=== PATIENT | male | born 1930 | race Hispanic/Latino ===

== ENCOUNTER 2017-08-19 18:01 | Emergency (ER) | payer OTHER ==
--- OUTSIDE RECORDS SUMMARY | 2017-08-19 18:03 | XMS REPORT | Clinical Summary ---
:1930 Author Organization [facility] Address [address] [place] [id number] Phone Care Team Providers Name Role Phone Unavailable Primary Care Provider Unavailable Allergies Active Allergy Reactions Severity Noted Date Comments Codeine 11/05/2015 Hydrocodone-Acetaminophen 12/05/2016 Pregabalin 12/05/2016 "Lyrica" Tramadol 12/05/2016 Current Medications Prescription Sig. Disp. Refills Start Date End Date Status aspirin 81 MG Take 81 mg by Active chewable tablet mouth daily. potassium chloride Take 20 mEq by Active SA (K-DUR,KLOR-CON) mouth daily . 10 MEQ tablet rosuvastatin Take 10 mg by Active (CRESTOR) 10 MG mouth daily. tablet cyanocobalamin 1000 Take 1,000 mcg Active MCG tablet by mouth daily. ascorbic acid, Take 1,000 mg Active vitamin C, (VITAMIN by mouth C) 1000 MG tablet daily. cholecalciferol, Take 1,000 Active vitamin D3, 2,000 Units by mouth unit Tab daily . LACTOBACILLUS Take 1 capsule Active ACIDOPHILUS by mouth daily (PROBIOTIC ORAL) . simethicone (MYLANTA Take 125 mg by Active GAS MAXIMUM mouth every 6 STRENGTH) 125 MG (six) hours as chewable tablet needed for Flatulence. glucosamine-chondroi Take 1 tablet Active tin 500-400 mg by mouth tablet daily. furosemide (LASIX) Take 1 tablet 30 tablet 2 01/04/2017 Active 40 MG tablet (40 mg total) by mouth daily. clopidogrel (PLAVIX) Take 1 tablet 30 tablet 3 01/05/2017 Active 75 mg tablet (75 mg total) 8 by mouth daily. omeprazole Take 40 mg by Active (PRILOSEC) 40 MG mouth daily. capsule hydrocortisone 2.5 % Apply Active ointment topically as needed (for eczema). VIT C/VIT E Take 1 tablet Active ACETATE/LUTEIN/MIN by mouth (OCUVITE LUTEIN daily. ORAL) metoprolol TAKE ONE 60 tablet 0 03/28/2017 Active (TOPROL-XL) 25 MG 24 TABLET BY hr tablet MOUTH TWICE DAILY furosemide (LASIX) Take 20 mg by Discontinued 20 MG tablet mouth daily . 7 metoprolol Take 25 mg by Discontinued (LOPRESSOR) 50 MG mouth 2 (two) 7 tablet times daily. multivitamin with Take 1 tablet Discontinued minerals tablet by mouth 7 daily. omeprazole Take 40 mg by Discontinued (PRILOSEC) 40 MG mouth daily. 7 capsule metFORMIN Take 500 mg by Discontinued (GLUCOPHAGE) 500 MG mouth 2 (two) 7 tablet times daily with breakfast and dinner. UNKNOWN 1 capsule Discontinued daily Med 7 Name: nolan . minocycline Take 1 capsule 20 capsule 0 01/05/2017 (MINOCIN,DYNACIN) (100 mg total) 7 100 MG capsule by mouth every 12 (twelve) hours for 10 days. metoprolol (TOPROL Take 1 tablet 60 tablet 0 01/18/2017 Discontinued XL) 25 MG 24 hr (25 mg total) 7 tablet by mouth 2 (two) times daily for 30 days. 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 Hypertension Resolved Problems Problem Noted Date Resolved Date Aortic valve stenosis 01/04/2017 01/18/2017 Angina pectoris (HCC) 01/18/2017 Encounters Date Type Specialty Care Team Description 05/02/2017 Refill Cardiology John Garduno NP 03/27/2017 Refill Cardiology John Garduno NP 02/20/2017 Refill Cardiology John Garduno NP 01/20/2017 Telephone Cardiology John Garduno NP Medication Problem 01/18/2017 Office Visit Cardiology John Garduno NP Chronic combined systolic and diastolic CHF, NYHA class 3 (HCC) (Primary Dx) 01/18/2017 Office Visit Cardiology Caleb Pollock Postoperative state MD Lynn (Primary Dx) 01/04/2017 - Hospital Encounter Cardiology Nelson Mcclellan Angina pectoris (HCC) 01/05/2017 MD Levi 01/04/2017 Procedure Pass 01/04/2017 Surgery Nelson Mcclellan TAVR / [facility] - MD Levi IP PROC ONLY 12/14/2016 Hospital Encounter Nelson Mcclellan MD 12/14/2016 Office Visit Cardiology Caleb Pollock Sarcoma (HCC);William Bailey MD pectoris (HCC);Sarcoma, Kaposi (HCC);Essential hypertension 12/14/2016 Anesthesia Event Landon Leslie, MENDOZA 12/05/2016 Hospital Encounter Radiology Nelson Mcclellan Aortic valve MD Levi stenosis, unspecified etiology 12/05/2016 Hospital Encounter Radiology Nelson Mcclellan Aortic valve MD Levi stenosis, unspecified etiology 12/05/2016 Office Visit Cardiology System, Provider Aortic valve Not In stenosis, unspecified Timmy Rivas etiology (Primary Dx) MD Rodrick 12/05/2016 Abstract Cardiology Timmy Rivas HyperlipidemiaRodrick MD unspecified hyperlipidemia type;Severe aortic stenosis;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);S/P CABG (coronary artery bypass graft);Bilateral carotid artery occlusion;S/P carotid endarterectomy;Gastro esophageal reflux disease without esophagitis 11/29/2016 Outside Orders Central Scheduling Nelson Mcclellan Aortic valve MD Levi stenosis, unspecified etiology (Primary Dx) after 08/18/2016 Social History Tobacco Use Types Packs/Day Years Used Date Never Smoker Smokeless Tobacco: Never Used Alcohol Use Drinks/Week oz/Week Comments No Sex Assigned at Date Recorded Not on file Last Filed Vital Signs Vital Sign Reading Time Taken Blood Pressure 157/82 01/18/2017 2:34 PM CDT Pulse 70 01/18/2017 10:09 AM CDT Temperature 36.6 C (97.8 F) 01/18/2017 10:09 AM CDT Respiratory Rate 16 01/18/2017 10:09 AM CDT Oxygen Saturation 98% 01/18/2017 10:09 AM CDT Inhaled Oxygen Concentration - - Weight 61.7 kg (136 lb) 01/18/2017 10:09 AM CDT Height 162.6 cm (5' 4") 01/18/2017 10:09 AM CDT Body Mass Index 23.34 01/18/2017 10:09 AM CDT Plan of Treatment Health Maintenance Due Date Last Done Comments INFLUENZA VACCINE 01/29/2018 Implants Implanted Type Area Freight Rate Clerk Device Expiration Date Model / Identifier Serial / Lot Reyes Cong 3 Thv REYES 07/14/2018 [id number] / Implanted: Qty: 1 on 01/04/2017 by Nelson Mcclellan MD [email or web address] [id number] / Procedures Procedure Name Priority Date/Time Associated Diagnosis Comments TAVR / LUDIVINA MCR - IP 01/04/2017 7:31 AM Rheumatic aortic PROC ONLY CDT stenosis Case Notes 1st case Tavr 6TOP after 08/18/2016 Results ECHOCARDIOGRAM REPORT - SCAN (01/31/2017 12:31 PM)B N P (01/18/2017 11:31 AM) Only the most recent of2 resultswithin the time period is included. Component Value Ref Range BNP 244 (H) 0 - 100 pg/mL Specimen Performing Laboratory Blood [address] [address] Magnesium (01/18/2017 11:31 AM) Component Value Ref Range Magnesium 2.1 1.6 - 2.6 mg/dL Specimen Performing Laboratory Blood [address] [address] Basic Metabolic Panel (01/18/2017 11:31 AM)Only the most recent of3 resultswithin the time period is included. Component Value Ref Range Sodium 135 (L) 136 - 145 meq/L Potassium 4.5 3.5 - 5.1 meq/L Chloride 97 (L) 98 - 107 meq/L CO2 30 (H) 22 - 29 meq/L BUN 19 7 - 21 mg/dL Creatinine 1.37 (H) 0.57 - 1.25 mg/dL Glucose 94 70 - 105 mg/dL Calcium 9.8 8.4 - 10.2 mg/dL EGFR 49Comment: ESTIMATED GFR IS NOT ACCURATE mL/min/1.73 sq m CREATININE CLEARANCE IN PREDICTING GLOMERULAR FILTRATION RATE. ESTIMATED GFR IS NOT APPLICABLE FOR DIALYSIS PATIENTS. Specimen Performing Laboratory Blood [facility] [address] [address] RHYTHM STRIP - SCAN (01/17/2017 1:50 PM)Only the most recent of2 resultswithin the time period is included.EKG-SCANNED (01/06/2017 9:04 PM)CARDIAC CATH REPORT - SCAN (01/06/2017 1:00 AM)Only the most recent of2 resultswithin the time period is included.TRANSFUSION SERVICE REPORT - SCAN (01/05/2017 6:12 PM) Only the most recent of2 resultswithin the time period is included.Transthoracic 2D echo w/ doppler (cw/pw/color) (01/05/2017 4:51 PM) Component Value Ref Range Ejection Fraction Specimen Performing Laboratory SLE ECHO HEARTLAB MKCKESSON CPACS Narrative Transthoracic Echocardiography Report (TTE) Demographics Patient NameGARCIA, PABLODate of Study01/05/2017 WALTER Gender Male Visit [id number] Race Unknown [id number] Number Date of 1930 Referring Physician Age 86 year(s) SonographerIzzy Livingston Armature Winder Repair Aquiles Huerta, Interpreting [facility] Needs to be Pre RCSPhysicianRead Isaias Lockhart MD Procedure Type of Study TTE procedure:2DECHO W DOPPLER(CW/PW/COLOR) (Pending Discharge) Indications:Initial post operative evaluation of prosthetic valve. Clinical History HGB 11.1 HCT 33.7 % CHF, CAD, PENA, GERD, HLD, HTN, Murmur, CABG, S/P TAVR (01/05/17 Reyes Cong 3 23mm), Sarcoma Height: 64 inches Weight: 63.5 kg (140 lbs) BSA: 1.68 m^2 BMI: 24.03 kg/m^2 HR: 67 bpm BP: 137/61 mmHg Summary The LV endocardium is partially visualized. The left ventricle is chamber size (by PSLAX dimension) is normal (male - LVIDd 4.2-5.8cm) . No evidence of LV hypertrophy. The following segment(s) appear akinetic: anteroseptal, inferoseptal . The other segments are hypokinetic. The LVEF was measured using Graves's bi-plane method of disk . LVEF by quantitative assessment is moderately reduced (30-34%) , A percutaneous (TAVR) biologic AoV prosthesis is visualized . The prosthetic AoV appears well-seated with normal function by Doppler. No evidence of aortic regurgitation. Pk / Mn: 7.7 / 4.7 mm Hg. AoV dimensionless obstructive index (DOI)) is .46 . Normal mitral valve structure and function. Trace mitral regurgitation. RV chamber size is normal . Global RV systolic function is mildly reduced . Normal tricuspid valve structure and function. A trace of tricuspid regurgitation. Estimated peak systolic PA pressure is cannot be determined due to inadequate TR velocity signal . Signature Findings Left Ventricle The LV endocardium is partially visualized. The left ventricle is chamber size (by PSLAX dimension) is normal (male - LVIDd 4.2-5.8cm) . No evidence of LV hypertrophy. The following segment(s) appear akinetic: anteroseptal, inferoseptal . The other segments are hypokinetic. The LVEF was measured using Graves's bi-plane method of disk . LVEF by quantitative assessment is moderately reduced (30-34%) , Left AtriumLA size is moderately (42-48 ml/m2) . Right VentricleRV chamber size is normal . Global RV systolic function is mildly reduced . Right Atrium Normal right atrium. Aortic Valve A percutaneous (TAVR) biologic AoV prosthesis is visualized . The prosthetic AoV appears well-seated with normal function by Doppler. No evidence of aortic regurgitation. Pk / Mn: 7.7 / 4.7 mm Hg. AoV dimensionless obstructive index (DOI)) is .46 . Mitral Valve Normal mitral valve structure and function. Trace mitral regurgitation. Tricuspid ValveNormal tricuspid valve structure and function. A trace of tricuspid regurgitation. Estimated peak systolic PA pressure is cannot be determined due to inadequate TR velocity signal . Pulmonic Valve Normal PV structure and function by limited views and Doppler. AortaAortic root size (SInus of Valsalva diameter) is normal . PericardiumNo evidence of pericardial effusion. IVC/SVC/PA/PV/PleuralThe inferior vena cava size is small . The estimated RA pressure by IVC dynamics 0-5mmHg . Chambers/Structures Left Atrium LA Dimension: 3.97 cmLA Area: 22.22 cm^2 LA Volume: 71.01 ml LA Vol. Index: 42 ml/m^2 Left Ventricle LVIDd: 5.2 cm LVEDV 2D:129.44 ml LVIDs: 4.2 cm LVESV 2D :78.55 ml LV Septum Diastolic: 0.97 cm LV PW Diastolic: 0.9 cm LV FS: 19.2 % LV ESV (Cubed):74.09 cc LV ESV (Teich):78.58 ml LV SV (Teich):50.93 ml LV SI (Teich):30.32 ml/m^2 LVEF 2D Teich: 39.3 % Doppler/Quantitative Measurements Aortic Valve Peak Velocity: 1.39 m/sMean Velocity: 1.03 m/s Peak Gradient: 7.74 mmHg Mean Gradient: 4.71 mmHg AV VTI: 31.36 cm AV DVI: 0.46 LVOT Peak Velocity: 0.61 m/s Peak Gradient: 1.5 mmHg Mean Velocity: 0.44 m/s Mean Gradient: 0.85 mmHg LVOT VTI: 14.52 cm Procedure Note Interface, External Ris In - 01/06/2017 9:38 AM CDT Transthoracic Echocardiography Report (TTE) Demographics Patient Name TANIKA ZEPEDA Date of Study 01/05/2017 WALTER Gender Male Visit Number [id number] Race Unknown Room Number C627 Number Date of 1930 Referring Physician Age 86 year(s) Specification Consultant Izzy Livingston Armature W[employer] Aquiles Huerta, Interpreting [facility] Needs to be Pre RCS Physician Read Isaias Lockhart MD Procedure Type of Study TTE procedure:2DECHO W DOPPLER(CW/PW/COLOR) (Pending Discharge) Indications:Initial post operative evaluation of prosthetic valve. Clinical History HGB 11.1 HCT 33.7 % CHF, CAD, PENA, GERD, HLD, HTN, Murmur, CABG, S/P TAVR (01/05/17 Reyse Cong 3 23mm), [place] Height: 64 inches Weight: 63.5 kg (140 lbs) BSA: 1.68 m^2 BMI: 24.03 kg/m^2 HR: 67 bpm BP: 137/61 mmHg Summary The LV endocardium is partially visualized. The left ventricle is chamber size (by PSLAX dimension) is normal (male - LVIDd 4.2-5.8cm) . No evidence of LV hypertrophy. The following segment(s) appear akinetic: anteroseptal, inferoseptal . The other segments are hypokinetic. The LVEF was measured using Graevs's bi-plane method of disk . LVEF by quantitative assessment is moderately reduced (30-34%) , A percutaneous (TAVR) biologic AoV prosthesis is visualized . The prosthetic AoV appears well-seated with normal function by Doppler. No evidence of aortic regurgitation. Pk / Mn: 7.7 / 4.7 mm Hg. AoV dimensionless obstructive index (DOI)) is .46 . Normal mitral valve structure and function. Trace mitral regurgitation. RV chamber size is normal . Global RV systolic function is mildly reduced . Normal tricuspid valve structure and function. A trace of tricuspid regurgitation. Estimated peak systolic PA pressure is cannot be determined due to inadequate TR velocity signal . Signature Findings Left Ventricle The LV endocardium is partially visualized. The left ventricle is chamber size (by PSLAX dimension) is normal (male - LVIDd 4.2-5.8cm) . No evidence of LV hypertrophy. The following segment(s) appear akinetic: anteroseptal, inferoseptal . The other segments are hypokinetic. The LVEF was measured using Graves's bi-plane method of disk . LVEF by quantitative assessment is moderately reduced (30-34%) , Left Atrium LA size is moderately (42-48 ml/m2) . Right Ventricle RV chamber size is normal . Global RV systolic function is mildly reduced . Right Atrium Normal right atrium. Aortic Valve A percutaneous (TAVR) biologic AoV prosthesis is visualized . The prosthetic AoV appears well-seated with normal function by Doppler. No evidence of aortic regurgitation. Pk / Mn: 7.7 / 4.7 mm Hg. AoV dimensionless obstructive index (DOI)) is .46 . Mitral Valve Normal mitral valve structure and function. Trace mitral regurgitation. Tricuspid Valve Normal tricuspid valve structure and function. A trace of tricuspid regurgitation. Estimated peak systolic PA pressure is cannot be determined due to inadequate TR velocity signal . Pulmonic Valve Normal PV structure and function by limited views and Doppler. Aorta Aortic root size (SInus of Valsalva diameter) is normal . Pericardium No evidence of pericardial effusion. IVC/SVC/PA/PV/Pleural The inferior vena cava size is small . The estimated RA pressure by IVC dynamics 0-5mmHg . Chambers/Structures Left Atrium LA Dimension: 3.97 cm LA Area: 22.22 cm^2 LA Volume: 71.01 ml LA Vol. Index: 42 ml/m^2 Left Ventricle LVIDd: 5.2 cm LVEDV 2D:129.44 ml LVIDs: 4.2 cm LVESV 2D:78.55 ml LV Septum Diastolic: 0.97 cm LV PW Diastolic: 0.9 cm LV FS: 19.2 % LV ESV (Cubed):74.09 cc LV ESV (Teich):78.58 ml LV SV (Teich):50.93 ml LV SI (Teich):30.32 ml/m^2 LVEF 2D Teich: 39.3 % Doppler/Quantitative Measurements Aortic Valve Peak Velocity: 1.39 m/s Mean Velocity: 1.03 m/s Peak Gradient: 7.74 mmHg Mean Gradient: 4.71 mmHg AV VTI: 31.36 cm AV DVI: 0.46 LVOT Peak Velocity: 0.61 m/s Peak Gradient: 1.5 mmHg Mean Velocity: 0.44 m/s Mean Gradient: 0.85 mmHg LVOT VTI: 14.52 cm ECG 12 lead (01/05/2017 3:55 AM) Specimen Performing Laboratory [employer] MUSE Narrative Ventricular Rate 59 BPM Atrial Rate 59 BPM P-R Interval 168 ms QRS Duration 84 ms Q-T Interval 464 ms QTC Calculation(Bazett) 459 ms P [place] 67 degrees R [place] 44 degrees T [place] 221 degrees Sinus bradycardia with occasional Premature ventricular complexes Anteroseptal infarct (cited on or before 12-OCT-1998) ST & T wave abnormality, consider lateral ischemia Abnormal ECG When compared with ECG of 18-OCT-1998 04:56, Premature ventricular complexes are now Present ST now depressed in Inferior leads ST now depressed in Lateral leads Confirmed by Whitney HERNANDEZ BASANT ([id number]) on 01/05/2017 12:37:30 PM Procedure Note Interface, External Ris In - 01/05/2017 12:37 PM CDT Ventricular Rate 59 BPM Atrial Rate 59 BPM P-R Interval 168 ms QRS Duration 84 ms Q-T Interval 464 ms QTC Calculation(Bazett) 459 ms P [place] 67 degrees R [place] 44 degrees T [place] 221 degrees Sinus bradycardia with occasional Premature ventricular complexes Anteroseptal infarct (cited on or before 12-OCT-1998) ST & T wave abnormality, consider lateral ischemia Abnormal ECG When compared with ECG of 18-OCT-1998 04:56, Premature ventricular complexes are now Present ST now depressed in Inferior leads ST now depressed in Lateral leads Confirmed by Whitney HERNANDEZ BASANT ([id number]) on 01/05/2017 12:37:30 PM CBC (Hemogram only) (01/05/2017 3:51 AM) Component Value Ref Range WBC 14.2 (H) 3.5 - 10.5 K/L RBC 3.60 (L) 4.63 - 6.08 M/L Hemoglobin 11.1 (L) 13.7 - 17.5 GM/DL Hematocrit 33.7 (L) 40.1 - 51.0 % MCV 93.6 (H) 79.0 - 92.2 fL MCH 30.8 25.7 - 32.2 pg MCHC 32.9 32.3 - 36.5 GM/DL RDW 13.4 11.6 - 14.4 % Platelets 118 (L) 150 - 450 K/CU MM MPV 10.2 9.4 - 12.4 fL nRBC 0 0 - 0 /100 WBC Specimen Performing Laboratory Blood - Arm, Left [address] [address] POC ACTIVATED CLOTTING TIME (01/04/2017 3:37 PM)Only the most recent of6 resultswithin the time period is included. Component Value Ref Range Activated Clotting Time 131Comment: TESTED AT [address] sec [id number] Specimen Performing Laboratory Blood [address] [address] Prepare Leuko-Red RBC (01/04/2017 10:53 AM) Component Value Ref Range CROSSMATCH COMPATIBLE Unit ABO O Pos UNIT NUMBER [id number] Status RETURNED FROM ISSUE Blood Bank Product RED BLOOD CELLS PRODUCT CODE [id number] CROSSMATCH COMPATIBLE Unit ABO O Pos UNIT NUMBER [id number] Status RETURNED FROM ISSUE Blood Bank Product RED BLOOD CELLS PRODUCT CODE [id number] CROSSMATCH COMPATIBLE Unit ABO O Pos UNIT NUMBER [id number] Status RETURNED FROM ISSUE Blood Bank Product RED BLOOD CELLS PRODUCT CODE [id number] CROSSMATCH COMPATIBLE Unit ABO O Pos UNIT NUMBER [id number] Status RETURNED FROM ISSUE Blood Bank Product RED BLOOD CELLS PRODUCT CODE [id number] Specimen Performing Laboratory Other [employer] [place] Type and screen, automated (12/14/2016 12:26 PM) Component Value Ref Range ABO/RH AUTOMATED (BEAKER) O POSITIVE Ab Scrn NEGATIVE Specimen Performing Laboratory Blood [address] [address] CBC with platelet count + automated diff (12/14/2016 12:26 PM) Component Value Ref Range WBC 11.8 (H) 3.5 - 10.5 K/L RBC 4.31 (L) 4.63 - 6.08 M/L Hemoglobin 13.5 (L) 13.7 - 17.5 GM/DL Hematocrit 40.3 40.1 - 51.0 % MCV 93.5 (H) 79.0 - 92.2 fL MCH 31.3 25.7 - 32.2 pg MCHC 33.5 32.3 - 36.5 GM/DL RDW 13.5 11.6 - 14.4 % Platelets 180 150 - 450 K/CU MM MPV 10.3 9.4 - 12.4 fL nRBC 0 0 - 0 /100 WBC % Neutros 71 % % Lymphs 12 % % Monos 6 % % Eos 9 % % Baso 1 % # Neutros 8.41 (H) 1.78 - 5.38 K/L # Lymphs 1.44 1.32 - 3.57 K/L # Monos 0.76 0.30 - 0.82 K/L # Eos 1.11 (H) 0.04 - 0.54 K/L # Baso 0.07 0.01 - 0.08 K/L Immature Granulocytes-Relative 0 0 - 1 % Specimen Performing Laboratory Blood [address] [address] Prothrombin time/INR (12/14/2016 12:26 PM) Component Value Ref Range Protime 13.4 11.7 - 14.7 seconds INR 1.0 <=5.9 Specimen Performing Laboratory Blood [address] [address] Narrative RECOMMENDED COUMADIN/WARFARIN INR THERAPY RANGES STANDARD DOSE: 2.0 - 3.0 Includes: PROPHYLAXIS for venous thrombosis, systemic embolization; TREATMENT for venous thrombosis and/or pulmonary embolus. HIGH RISK: Target INR is 2.5-3.5 for patients with mechanical heart valves. CBC with platelet count + automated diff (12/14/2016 12:26 PM) Specimen Performing Laboratory Blood Narrative The following orders were created for panel order CBC with platelet count + automated diff. Procedure Abnormality Status --------- ------ CBC with platelet count ...[[id number]]AbnormalFinal result Please view results for these tests on the individual orders. Albumin (12/14/2016 12:26 PM) Component Value Ref Range Albumin 4.3 3.5 - 5.0 g/dL Specimen Performing Laboratory Blood [facility] [address] [address] CTA chest (12/05/2016 11:51 AM) Specimen Performing Laboratory [employer] Narrative Addendum Begins REPORT STATUS:A Addendum: December 05, 2016 at 1700 hours I have reviewed the CT images for this study and I concur with the nonvascular imaging findings as dictated. In addition to previously reported findings, there is apparent filling defect in the posterior and inferior aspect of the bladder which could be related to the patient's enlarged prostate gland. A separate bladder mass, over, cannot be completely excluded. Additional imaging or cystoscopy may be useful for further evaluation. Signed: Timmy Fields MD Report Verified Date/Time:12/05/2016 16:58:02 Reading Location: [place] [address] Angio Body Reading Room Addendum Ends FINAL REPORT CT angiography of the thoracoabdominal aorta and pelvic arteries, November INDICATION: This is a 86 years old male, with a diagnosis of aortic stenosis presents for preprocedure TAVR assessment. This study is performed in attempt to avoid invasive procedure. TECHNIQUE: Spiral acquisition before and during contrast administration using a Eryn multidetector CT scanner. Multiplanar 3-D volume rendering reformation was performed using independent workstation interactively by the dictating physician and and the 3-D specialist. The amount of contrast used and method of administration can be found in the scanned Epic document. This exam was performed according to our departmental dose-optimisation programme, which includes automated exposure control, adjustment of the mA and/or kV according to patient size and/or use of iterative reconstruction technique. Dose modulation, iterative reconstruction, and/or weight based adjustment of the mA/kV was utilized to reduce the radiation dose to as low as reasonably achievable. FINDINGS: VASCULAR: The central pulmonary artery is normal in calibER. The cardiac chamber demonstrate normal atrioventricular and ventriculoarterial concordance, systemic and pulmonary venous return. The left ventricle is normal in size. Left atrial enlargement is identified. Coronary artery origins are normal and coronary artery calcification is seen diffusely. Patient is post coronary artery bypass surgery. A left internal mammary artery is identified connecting to the LAD territory. A bypass graft is seen possibly to the OM territory and another bypass graft is seen to the RCA territory and this graft are widely patent. The minimum distance of the left internal mammary artery to the midline of the sternum is approximately 18 mm at image 128. The distance of the internal mammary graft to the posterior aspect of the sternum is approximately 2 cm image 132. The minimum distance between the takeoff of the proximal aspect of the graft to the posterior aspect of the sternum is approximately 2.8 cm image 125 and for that for the RCA graft is approximately 3.4 cm image 139. Patient has a diagnosis of aortic stenosis. The aortic valve is tricuspid. Aortic valve area is approximately 0.44 sq cm. Agatston score is 1941. The location of aortic valvular calcification can be seen in reformatted data sent to PACS. No evidence of mitral annular calcification is identified. Regarding the aorta, the ascending thoracic aorta only had minimal calcification seen in the aortic root, and the transverse arch and descending thoracic aorta has calcific and noncalcific atherosclerosis identified. Protruding noncalcific atheroma is identified near the diaphragmatic hiatus, for example image 279, the thickness of the atheroma is 6 to 7 mm. In the abdominal aorta, there is mild calcific and noncalcific atherosclerosis identified. Overall, no dilation is seen and no ectasia is present. The common iliac, external iliac, common femoral, and the visualized superficial femoral arteries are patent with no obstructive lesion identified. Calcific atherosclerosis and noncalcific atherosclerosis is seen especially in the common iliac artery level. Refer to minimum diameter for details. The coeliac axis, SMA, SHY are widely patent. Eccentric calcification is seen in the takeoff of the celiac axis. There are two left and two right renal arteries identified. The renal arteries are somewhat small in size. Atherosclerosis seen but no critical obstructive lesion is seen in all renal arteries. Arch vessel branching pattern is normal and the visualized arch vessels are patent. There is mild calcific atherosclerosis identified in the left subclavian artery proximally. The minimum diameter at image 55, is approximately 5.0 x 6.8 mm. The right subclavian artery also has some mild calcific atherosclerosis identified and the minimum diameter is approximately 6 to 7 mm image 35. Dimensions that may be helpful for TAVR as follows: There is only mild calcific atherosclerosis seen at the ascending thoracic aorta near the aortic root. The major and minor aortic annulus diameter measures 24.3 and 19.8 mm, respectively. The aortic annulus perimeter measured 71 mm and the cross-sectional area measures 389 mm2. The aortic annulus diameter at the traditional LVOT and coronal LVOT measures 17.5 and 20.9 mm, respectively. For reference purpose, per REYES S3 brochure, recommendation are as follows: CT area between 273 to 345 mm2 (20 mm valve); 338 to 430 mm2 (23 mm valve); 430 to 546 mm2 (26 mm valve); 540 to 683 mm2 (29 mm valve). For reference purpose, per CoreValve Evolut R brochure, recommendation are as follows: CT perimeter between 56.5-62.8 mm (23 mm valve); 62.8-72.3 mm (26 mm valve); 72.3-81.7 mm (29 mm valve); and 81.7-94.2. mm (34 mm valve). Agatston Score is 1941.By planimetry, the aortic valve area is approximately 44 sq mm. The sinus of Valsalva height, RCC (diastole): 11.8 mm The sinus of Valsalva height, LCC (diastole): 12.0 mm The sinus of Valsalva diameter, RCC (diastole): 26.6 mm The sinus of Valsalva diameter, LCC (diastole): 25.5 mm The sinus of Valsalva diameter, NCC (diastole): 26.0 mm The sinotubular junction measures approximately 25.5 x 23.9 mm. The angle of delivery is PARAGUAYAN 17 MR TEACHER 13. The aortic root angulation measures 39.5 degrees. The minimal and perpendicular abdominal aortic diameter measure 10.3 and 14.5 mm, respectively. There is no evidence of thoracoabdominal aortic aneurysm or stent placement present. The minimum and the perpendicular left common iliac artery measures 7.5 and 7.6 mm, respectively with mildtortuosity and mildcalcific atherosclerosis present. The minimum and the perpendicular left external iliac artery measures 6.4 and 6.5 mm, respectively with mild tortuosity and nocalcific atherosclerosis present. The minimum and the perpendicular left femoral artery measures 7.4 and 7.5 mm, respectively with mildtortuosity and none calcific atherosclerosis present. The minimum and the perpendicular right common iliac artery measures 6.3 and 6.7 mm, respectively with mildtortuosity and artery moderate calcific and noncalcificatherosclerosis present. The minimum and the perpendicular rightexternal iliac artery measures 6.1 and 6.3 mm, respectively with [id number] and minimumcalcific atherosclerosis present. The minimum and the perpendicular right femoral artery measures 5.9 and 6.1 mm, respectively with minimaltortuosity and nonecalcific atherosclerosis present. NONVASCULAR: The visualised thyroid gland appears grossly unremarkable. The chest wall and mediastinum is remarkable for prior median sternotomy. The right ventricular free wall and the pericardium is immediately posterior to the sternum though no obvious adhesion is identified. Small lymph nodes are seen in the mediastinum that are small in size, overall considered nonspecific in nature. In the lung windows, no obvious endobronchial lesion is seen and no pleural effusions identified. Dependent changes are seen in the lung bases. Some subsegmental atelectatic changes are seen. Apical scarring is identified. Overall, no suspicious pulmonary nodule is identified. In addition, small calcified granuloma is identified, at image 149, abutting the fissure in the right lung. In the abdomen, the liver and spleen appears unremarkable. Patient is post cholecystectomy. The adrenal glands are not enlarged. The pancreas appears unremarkable. No acute renal pathology is seen and no hydronephrosis or perirenal fluid collections identified. However, cortical scarring is identified in both kidneys. Bowel is not well assessed by CT angiography as enteric contrast is not given. No obvious bowel dilation is identified. The appendix appears unremarkable. The prostate gland is prominent with heterogeneous appearance with punctate calcification identified. Correlate clinically. The prostate gland is not prominent. Some wall thickening is seen that could in part due to limited obstruction and in part due to nondistention. Surgical clips are seen in both groins level, likely due to prior hernia repair. No free air free fluid seen abdomen and pelvis and no significant retroperitoneal adenopathy is identified. Small lymph nodes are seen in both groins, considered nonspecific in nature. In the lung windows, no obvious endobronchial lesion is seen and no pleural effusion is identified. Only minimal degenerative changes are noted. CONCLUSIONS: 1.Patient has a diagnosis of aortic stenosis. Aortic valve is tricuspid. Agatston score is almost 2000. Aortic valve area is 0.44 sq mm. Only minimal calcification is identified at the aortic root. Noncalcific atherosclerosis seen at the level of the aortic diaphragmatic hiatus. No mitral annular calcification is identified. Dimensions that may be helpful for TAVR as described above. 2.Patient is post coronary artery bypass surgery and three patent grafts are seen. 3.No acute pulmonary pathology. Evidence of prior granulomatous disease. 4.Other findings as described above. 5.An addendum will be dictated by the [facility] Radiologist regarding the nonvascular findings. Signed: Julito Morataya MD Report Verified Date/Time:12/05/2016 14:38:32 Reading Location: [facility] [id number] Cardiology MRI Procedure Note Interface, External Ris In - 12/05/2016 5:00 PM CDT Addendum Begins REPORT STATUS:A Addendum: December 05, 2016 at 1700 hours I have reviewed the CT images for this study and I concur with the nonvascular imaging findings as dictated. In addition to previously reported findings, there is apparent filling defect in the posterior and inferior aspect of the bladder which could be related to the patient's enlarged prostate gland. A separate bladder mass, over, cannot be completely excluded. Additional imaging or cystoscopy may be useful for further evaluation. Signed: Timmy Fields MD Report Verified Date/Time: 12/05/2016 16:58:02 Reading Location: [facility] P048 Angio Body Reading Room Addendum Ends FINAL REPORT CT angiography of the thoracoabdominal aorta and pelvic arteries, November INDICATION: This is a 86 years old male, with a diagnosis of aortic stenosis presents for preprocedure TAVR assessment. This study is performed in attempt to avoid invasive procedure. TECHNIQUE: Spiral acquisition before and during contrast administration using a Eryn multidetector CT scanner. Multiplanar 3-D volume rendering reformation was performed using independent workstation interactively by the dictating physician and and the 3-D specialist. The amount of contrast used and method of administration can be found in the scanned Epic document. This exam was performed according to our departmental dose-optimisation programme, which includes automated exposure control, adjustment of the mA and/or kV according to patient size and/or use of iterative reconstruction technique. Dose modulation, iterative reconstruction, and/or weight based adjustment of the mA/kV was utilized to reduce the radiation dose to as low as reasonably achievable. FINDINGS: VASCULAR: The central pulmonary artery is normal in calibER. The cardiac chamber demonstrate normal atrioventricular and ventriculoarterial concordance, systemic and pulmonary venous return. The left ventricle is normal in size. Left atrial enlargement is identified. Coronary artery origins are normal and coronary artery calcification is seen diffusely. Patient is post coronary artery bypass surgery. A left internal mammary artery is identified connecting to the LAD territory. A bypass graft is seen possibly to the OM territory and another bypass graft is seen to the RCA territory and this graft are widely patent. The minimum distance of the left internal mammary artery to the midline of the sternum is approximately 18 mm at image 128. The distance of the internal mammary graft to the posterior aspect of the sternum is approximately 2 cm image 132. The minimum distance between the takeoff of the proximal aspect of the graft to the posterior aspect of the sternum is approximately 2.8 cm image 125 and for that for the RCA graft is approximately 3.4 cm image 139. Patient has a diagnosis of aortic stenosis. The aortic valve is tricuspid. Aortic valve area is approximately 0.44 sq cm. Agatston score is 1941. The location of aortic valvular calcification can be seen in reformatted data sent to PACS. No evidence of mitral annular calcification is identified. Regarding the aorta, the ascending thoracic aorta only had minimal calcification seen in the aortic root, and the transverse arch and descending thoracic aorta has calcific and noncalcific atherosclerosis identified. Protruding noncalcific atheroma is identified near the diaphragmatic hiatus, for example image 279, the thickness of the atheroma is 6 to 7 mm. In the abdominal aorta, there is mild calcific and noncalcific atherosclerosis identified. Overall, no dilation is seen and no ectasia is present. The common iliac, external iliac, common femoral, and the visualized superficial femoral arteries are patent with no obstructive lesion identified. Calcific atherosclerosis and noncalcific atherosclerosis is seen especially in the common iliac artery level. Refer to minimum diameter for details. The coeliac axis, SMA, SHY are widely patent. Eccentric calcification is seen in the takeoff of the celiac axis. There are two left and two right renal arteries identified. The renal arteries are somewhat small in size. Atherosclerosis seen but no critical obstructive lesion is seen in all renal arteries. Arch vessel branching pattern is normal and the visualized arch vessels are patent. There is mild calcific atherosclerosis identified in the left subclavian artery proximally. The minimum diameter at image 55, is approximately 5.0 x 6.8 mm. The right subclavian artery also has some mild calcific atherosclerosis identified and the minimum diameter is approximately 6 to 7 mm image 35. Dimensions that may be helpful for TAVR as follows: There is only mild calcific atherosclerosis seen at the ascending thoracic aorta near the aortic root. The major and minor aortic annulus diameter measures 24.3 and 19.8 mm, respectively. The aortic annulus perimeter measured 71 mm and the cross-sectional area measures 389 mm2. The aortic annulus diameter at the traditional LVOT and coronal LVOT measures 17.5 and 20.9 mm, respectively. For reference purpose, per REYES S3 brochure, recommendation are as follows: CT area between 273 to 345 mm2 (20 mm valve); 338 to 430 mm2 (23 mm valve); 430 to 546 mm2 (26 mm valve); 540 to 683 mm2 (29 mm valve). For reference purpose, per CoreValve Evolut R brochure, recommendation are as follows: CT perimeter between 56.5-62.8 mm (23 mm valve); 62.8-72.3 mm (26 mm valve); 72.3-81.7 mm (29 mm valve); and 81.7-94.2. mm (34 mm valve). Agatston Score is 1941. By planimetry, the aortic valve area is approximately 44 sq mm. The sinus of Valsalva height, RCC (diastole): 11.8 mm The sinus of Valsalva height, LCC (diastole): 12.0 mm The sinus of Valsalva diameter, RCC (diastole): 26.6 mm The sinus of Valsalva diameter, LCC (diastole): 25.5 mm The sinus of Valsalva diameter, NCC (diastole): 26.0 mm The sinotubular junction measures approximately 25.5 x 23.9 mm. The angle of delivery is PARAGUAYAN 17 MR TEACHER 13. The aortic root angulation measures 39.5 degrees. The minimal and perpendicular abdominal aortic diameter measure 10.3 and 14.5 mm, respectively. There is no evidence of thoracoabdominal aortic aneurysm or stent placement present. The minimum and the perpendicular left common iliac artery measures 7.5 and 7.6 mm, respectively with mild tortuosity and mild calcific atherosclerosis present. The minimum and the perpendicular left external iliac artery measures 6.4 and 6.5 mm, respectively with mild tortuosity and no calcific atherosclerosis present. The minimum and the perpendicular left femoral artery measures 7.4 and 7.5 mm, respectively with mild tortuosity and none calcific atherosclerosis present. The minimum and the perpendicular right common iliac artery measures 6.3 and 6.7 mm, respectively with mild tortuosity and artery moderate calcific and noncalcific atherosclerosis present. The minimum and the perpendicular right external iliac artery measures 6.1 and 6.3 mm, respectively with [id number] tortuosity and minimum calcific atherosclerosis present. The minimum and the perpendicular right femoral artery measures 5.9 and 6.1 mm, respectively with minimal tortuosity and none calcific atherosclerosis present. NONVASCULAR: The visualised thyroid gland appears grossly unremarkable. The chest wall and mediastinum is remarkable for prior median sternotomy. The right ventricular free wall and the pericardium is immediately posterior to the sternum though no obvious adhesion is identified. Small lymph nodes are seen in the mediastinum that are small in size, overall considered nonspecific in nature. In the lung windows, no obvious endobronchial lesion is seen and no pleural effusions identified. Dependent changes are seen in the lung bases. Some subsegmental atelectatic changes are seen. Apical scarring is identified. Overall, no suspicious pulmonary nodule is identified. In addition, small calcified granuloma is identified, at image 149, abutting the fissure in the right lung. In the abdomen, the liver and spleen appears unremarkable. Patient is post cholecystectomy. The adrenal glands are not enlarged. The pancreas appears unremarkable. No acute renal pathology is seen and no hydronephrosis or perirenal fluid collections identified. However, cortical scarring is identified in both kidneys. Bowel is not well assessed by CT angiography as enteric contrast is not given. No obvious bowel dilation is identified. The appendix appears unremarkable. The prostate gland is prominent with heterogeneous appearance with punctate calcification identified. Correlate clinically. The prostate gland is not prominent. Some wall thickening is seen that could in part due to limited obstruction and in part due to nondistention. Surgical clips are seen in both groins level, likely due to prior hernia repair. No free air free fluid seen abdomen and pelvis and no significant retroperitoneal adenopathy is identified. Small lymph nodes are seen in both groins, considered nonspecific in nature. In the lung windows, no obvious endobronchial lesion is seen and no pleural effusion is identified. Only minimal degenerative changes are noted. CONCLUSIONS: 1. Patient has a diagnosis of aortic stenosis. Aortic valve is tricuspid. Agatston score is almost 2000. Aortic valve area is 0.44 sq mm. Only minimal calcification is identified at the aortic root. Noncalcific atherosclerosis seen at the level of the aortic diaphragmatic hiatus. No mitral annular calcification is identified. Dimensions that may be helpful for TAVR as described above. 2. Patient is post coronary artery bypass surgery and three patent grafts are seen. 3. No acute pulmonary pathology. Evidence of prior granulomatous disease. 4. Other findings as described above. 5. An addendum will be dictated by the [facility] Radiologist regarding the nonvascular findings. Signed: Julito Morataya MD Report Verified Date/Time: 12/05/2016 14:38:32 Reading Location: [place] [id number] Cardiology MRI abdomen & pelvis (12/05/2016 11:51 AM) Specimen Performing Laboratory Annex Products Narrative Addendum Begins REPORT STATUS:A Addendum: December 05, 2016 at 1700 hours I have reviewed the CT images for this study and I concur with the nonvascular imaging findings as dictated. In addition to previously reported findings, there is apparent filling defect in the posterior and inferior aspect of the bladder which could be related to the patient's enlarged prostate gland. A separate bladder mass, over, cannot be completely excluded. Additional imaging or cystoscopy may be useful for further evaluation. Signed: Timmy Fields MD Report Verified Date/Time:12/05/2016 16:58:02 Reading Location: [facility] P048 Angio Body Reading Room Addendum Ends FINAL REPORT CT angiography of the thoracoabdominal aorta and pelvic arteries, November INDICATION: This is a 86 years old male, with a diagnosis of aortic stenosis presents for preprocedure TAVR assessment. This study is performed in attempt to avoid invasive procedure. TECHNIQUE: Spiral acquisition before and during contrast administration using a Eryn multidetector CT scanner. Multiplanar 3-D volume rendering reformation was performed using independent workstation interactively by the dictating physician and and the 3-D specialist. The amount of contrast used and method of administration can be found in the scanned Epic document. This exam was performed according to our departmental dose-optimisation programme, which includes automated exposure control, adjustment of the mA and/or kV according to patient size and/or use of iterative reconstruction technique. Dose modulation, iterative reconstruction, and/or weight based adjustment of the mA/kV was utilized to reduce the radiation dose to as low as reasonably achievable. FINDINGS: VASCULAR: The central pulmonary artery is normal in calibER. The cardiac chamber demonstrate normal atrioventricular and ventriculoarterial concordance, systemic and pulmonary venous return. The left ventricle is normal in size. Left atrial enlargement is identified. Coronary artery origins are normal and coronary artery calcification is seen diffusely. Patient is post coronary artery bypass surgery. A left internal mammary artery is identified connecting to the LAD territory. A bypass graft is seen possibly to the OM territory and another bypass graft is seen to the RCA territory and this graft are widely patent. The minimum distance of the left internal mammary artery to the midline of the sternum is approximately 18 mm at image 128. The distance of the internal mammary graft to the posterior aspect of the sternum is approximately 2 cm image 132. The minimum distance between the takeoff of the proximal aspect of the graft to the posterior aspect of the sternum is approximately 2.8 cm image 125 and for that for the RCA graft is approximately 3.4 cm image 139. Patient has a diagnosis of aortic stenosis. The aortic valve is tricuspid. Aortic valve area is approximately 0.44 sq cm. Agatston score is 1941. The location of aortic valvular calcification can be seen in reformatted data sent to PACS. No evidence of mitral annular calcification is identified. Regarding the aorta, the ascending thoracic aorta only had minimal calcification seen in the aortic root, and the transverse arch and descending thoracic aorta has calcific and noncalcific atherosclerosis identified. Protruding noncalcific atheroma is identified near the diaphragmatic hiatus, for example image 279, the thickness of the atheroma is 6 to 7 mm. In the abdominal aorta, there is mild calcific and noncalcific atherosclerosis identified. Overall, no dilation is seen and no ectasia is present. The common iliac, external iliac, common femoral, and the visualized superficial femoral arteries are patent with no obstructive lesion identified. Calcific atherosclerosis and noncalcific atherosclerosis is seen especially in the common iliac artery level. Refer to minimum diameter for details. The coeliac axis, SMA, SHY are widely patent. Eccentric calcification is seen in the takeoff of the celiac axis. There are two left and two right renal arteries identified. The renal arteries are somewhat small in size. Atherosclerosis seen but no critical obstructive lesion is seen in all renal arteries. Arch vessel branching pattern is normal and the visualized arch vessels are patent. There is mild calcific atherosclerosis identified in the left subclavian artery proximally. The minimum diameter at image 55, is approximately 5.0 x 6.8 mm. The right subclavian artery also has some mild calcific atherosclerosis identified and the minimum diameter is approximately 6 to 7 mm image 35. Dimensions that may be helpful for TAVR as follows: There is only mild calcific atherosclerosis seen at the ascending thoracic aorta near the aortic root. The major and minor aortic annulus diameter measures 24.3 and 19.8 mm, respectively. The aortic annulus perimeter measured 71 mm and the cross-sectional area measures 389 mm2. The aortic annulus diameter at the traditional LVOT and coronal LVOT measures 17.5 and 20.9 mm, respectively. For reference purpose, per REYES S3 brochure, recommendation are as follows: CT area between 273 to 345 mm2 (20 mm valve); 338 to 430 mm2 (23 mm valve); 430 to 546 mm2 (26 mm valve); 540 to 683 mm2 (29 mm valve). For reference purpose, per CoreValve Evolut R brochure, recommendation are as follows: CT perimeter between 56.5-62.8 mm (23 mm valve); 62.8-72.3 mm (26 mm valve); 72.3-81.7 mm (29 mm valve); and 81.7-94.2. mm (34 mm valve). Agatston Score is 1941.By planimetry, the aortic valve area is approximately 44 sq mm. The sinus of Valsalva height, RCC (diastole): 11.8 mm The sinus of Valsalva height, LCC (diastole): 12.0 mm The sinus of Valsalva diameter, RCC (diastole): 26.6 mm The sinus of Valsalva diameter, LCC (diastole): 25.5 mm The sinus of Valsalva diameter, NCC (diastole): 26.0 mm The sinotubular junction measures approximately 25.5 x 23.9 mm. The angle of delivery is PARAGUAYAN 17 MR TEACHER 13. The aortic root angulation measures 39.5 degrees. The minimal and perpendicular abdominal aortic diameter measure 10.3 and 14.5 mm, respectively. There is no evidence of thoracoabdominal aortic aneurysm or stent placement present. The minimum and the perpendicular left common iliac artery measures 7.5 and 7.6 mm, respectively with mildtortuosity and mildcalcific atherosclerosis present. The minimum and the perpendicular left external iliac artery measures 6.4 and 6.5 mm, respectively with mild tortuosity and nocalcific atherosclerosis present. The minimum and the perpendicular left femoral artery measures 7.4 and 7.5 mm, respectively with mildtortuosity and none calcific atherosclerosis present. The minimum and the perpendicular right common iliac artery measures 6.3 and 6.7 mm, respectively with mildtortuosity and artery moderate calcific and noncalcificatherosclerosis present. The minimum and the perpendicular rightexternal iliac artery measures 6.1 and 6.3 mm, respectively with [id number] and minimumcalcific atherosclerosis present. The minimum and the perpendicular right femoral artery measures 5.9 and 6.1 mm, respectively with minimaltortuosity and nonecalcific atherosclerosis present. NONVASCULAR: The visualised thyroid gland appears grossly unremarkable. The chest wall and mediastinum is remarkable for prior median sternotomy. The right ventricular free wall and the pericardium is immediately posterior to the sternum though no obvious adhesion is identified. Small lymph nodes are seen in the mediastinum that are small in size, overall considered nonspecific in nature. In the lung windows, no obvious endobronchial lesion is seen and no pleural effusions identified. Dependent changes are seen in the lung bases. Some subsegmental atelectatic changes are seen. Apical scarring is identified. Overall, no suspicious pulmonary nodule is identified. In addition, small calcified granuloma is identified, at image 149, abutting the fissure in the right lung. In the abdomen, the liver and spleen appears unremarkable. Patient is post cholecystectomy. The adrenal glands are not enlarged. The pancreas appears unremarkable. No acute renal pathology is seen and no hydronephrosis or perirenal fluid collections identified. However, cortical scarring is identified in both kidneys. Bowel is not well assessed by CT angiography as enteric contrast is not given. No obvious bowel dilation is identified. The appendix appears unremarkable. The prostate gland is prominent with heterogeneous appearance with punctate calcification identified. Correlate clinically. The prostate gland is not prominent. Some wall thickening is seen that could in part due to limited obstruction and in part due to nondistention. Surgical clips are seen in both groins level, likely due to prior hernia repair. No free air free fluid seen abdomen and pelvis and no significant retroperitoneal adenopathy is identified. Small lymph nodes are seen in both groins, considered nonspecific in nature. In the lung windows, no obvious endobronchial lesion is seen and no pleural effusion is identified. Only minimal degenerative changes are noted. CONCLUSIONS: 1.Patient has a diagnosis of aortic stenosis. Aortic valve is tricuspid. Agatston score is almost 2000. Aortic valve area is 0.44 sq mm. Only minimal calcification is identified at the aortic root. Noncalcific atherosclerosis seen at the level of the aortic diaphragmatic hiatus. No mitral annular calcification is identified. Dimensions that may be helpful for TAVR as described above. 2.Patient is post coronary artery bypass surgery and three patent grafts are seen. 3.No acute pulmonary pathology. Evidence of prior granulomatous disease. 4.Other findings as described above. 5.An addendum will be dictated by the [facility] Radiologist regarding the nonvascular findings. Signed: Julito Morataya MD Report Verified Date/Time:12/05/2016 14:38:32 Reading Location: [place] [address] Cardiology MRI Procedure Note Interface, External Ris In - 12/05/2016 5:00 PM CDT Addendum Begins REPORT STATUS:A Addendum: December 05, 2016 at 1700 hours I have reviewed the CT images for this study and I concur with the nonvascular imaging findings as dictated. In addition to previously reported findings, there is apparent filling defect in the posterior and inferior aspect of the bladder which could be related to the patient's enlarged prostate gland. A separate bladder mass, over, cannot be completely excluded. Additional imaging or cystoscopy may be useful for further evaluation. Signed: Timmy Fields MD Report Verified Date/Time: 12/05/2016 16:58:02 Reading Location: [place] [address] Angio Body Reading Room Addendum Ends FINAL REPORT CT angiography of the thoracoabdominal aorta and pelvic arteries, November INDICATION: This is a 86 years old male, with a diagnosis of aortic stenosis presents for preprocedure TAVR assessment. This study is performed in attempt to avoid invasive procedure. TECHNIQUE: Spiral acquisition before and during contrast administration using a Eryn multidetector CT scanner. Multiplanar 3-D volume rendering reformation was performed using independent workstation interactively by the dictating physician and and the 3-D specialist. The amount of contrast used and method of administration can be found in the scanned Epic document. This exam was performed according to our departmental dose-optimisation programme, which includes automated exposure control, adjustment of the mA and/or kV according to patient size and/or use of iterative reconstruction technique. Dose modulation, iterative reconstruction, and/or weight based adjustment of the mA/kV was utilized to reduce the radiation dose to as low as reasonably achievable. FINDINGS: VASCULAR: The central pulmonary artery is normal in calibER. The cardiac chamber demonstrate normal atrioventricular and ventriculoarterial concordance, systemic and pulmonary venous return. The left ventricle is normal in size. Left atrial enlargement is identified. Coronary artery origins are normal and coronary artery calcification is seen diffusely. Patient is post coronary artery bypass surgery. A left internal mammary artery is identified connecting to the LAD territory. A bypass graft is seen possibly to the OM territory and another bypass graft is seen to the RCA territory and this graft are widely patent. The minimum distance of the left internal mammary artery to the midline of the sternum is approximately 18 mm at image 128. The distance of the internal mammary graft to the posterior aspect of the sternum is approximately 2 cm image 132. The minimum distance between the takeoff of the proximal aspect of the graft to the posterior aspect of the sternum is approximately 2.8 cm image 125 and for that for the RCA graft is approximately 3.4 cm image 139. Patient has a diagnosis of aortic stenosis. The aortic valve is tricuspid. Aortic valve area is approximately 0.44 sq cm. Agatston score is 1941. The location of aortic valvular calcification can be seen in reformatted data sent to PACS. No evidence of mitral annular calcification is identified. Regarding the aorta, the ascending thoracic aorta only had minimal calcification seen in the aortic root, and the transverse arch and descending thoracic aorta has calcific and noncalcific atherosclerosis identified. Protruding noncalcific atheroma is identified near the diaphragmatic hiatus, for example image 279, the thickness of the atheroma is 6 to 7 mm. In the abdominal aorta, there is mild calcific and noncalcific atherosclerosis identified. Overall, no dilation is seen and no ectasia is present. The common iliac, external iliac, common femoral, and the visualized superficial femoral arteries are patent with no obstructive lesion identified. Calcific atherosclerosis and noncalcific atherosclerosis is seen especially in the common iliac artery level. Refer to minimum diameter for details. The coeliac axis, SMA, SHY are widely patent. Eccentric calcification is seen in the takeoff of the celiac axis. There are two left and two right renal arteries identified. The renal arteries are somewhat small in size. Atherosclerosis seen but no critical obstructive lesion is seen in all renal arteries. Arch vessel branching pattern is normal and the visualized arch vessels are patent. There is mild calcific atherosclerosis identified in the left subclavian artery proximally. The minimum diameter at image 55, is approximately 5.0 x 6.8 mm. The right subclavian artery also has some mild calcific atherosclerosis identified and the minimum diameter is approximately 6 to 7 mm image 35. Dimensions that may be helpful for TAVR as follows: There is only mild calcific atherosclerosis seen at the ascending thoracic aorta near the aortic root. The major and minor aortic annulus diameter measures 24.3 and 19.8 mm, respectively. The aortic annulus perimeter measured 71 mm and the cross-sectional area measures 389 mm2. The aortic annulus diameter at the traditional LVOT and coronal LVOT measures 17.5 and 20.9 mm, respectively. For reference purpose, per REYES S3 brochure, recommendation are as follows: CT area between 273 to 345 mm2 (20 mm valve); 338 to 430 mm2 (23 mm valve); 430 to 546 mm2 (26 mm valve); 540 to 683 mm2 (29 mm valve). For reference purpose, per [employer] brochure, recommendation are as follows: CT perimeter between 56.5-62.8 mm (23 mm valve); 62.8-72.3 mm (26 mm valve); 72.3-81.7 mm (29 mm valve); and 81.7-94.2. mm (34 mm valve). Agatston Score is 1941. By planimetry, the aortic valve area is approximately 44 sq mm. The sinus of Valsalva height, RCC (diastole): 11.8 mm The sinus of Valsalva height, LCC (diastole): 12.0 mm The sinus of Valsalva diameter, RCC (diastole): 26.6 mm The sinus of Valsalva diameter, LCC (diastole): 25.5 mm The sinus of Valsalva diameter, NCC (diastole): 26.0 mm The sinotubular junction measures approximately 25.5 x 23.9 mm. The angle of delivery is PARAGUAYAN 17 MR TEACHER 13. The aortic root angulation measures 39.5 degrees. The minimal and perpendicular abdominal aortic diameter measure 10.3 and 14.5 mm, respectively. There is no evidence of thoracoabdominal aortic aneurysm or stent placement present. The minimum and the perpendicular left common iliac artery measures 7.5 and 7.6 mm, respectively with mild tortuosity and mild calcific atherosclerosis present. The minimum and the perpendicular left external iliac artery measures 6.4 and 6.5 mm, respectively with mild tortuosity and no calcific atherosclerosis present. The minimum and the perpendicular left femoral artery measures 7.4 and 7.5 mm, respectively with mild tortuosity and none calcific atherosclerosis present. The minimum and the perpendicular right common iliac artery measures 6.3 and 6.7 mm, respectively with mild tortuosity and artery moderate calcific and noncalcific atherosclerosis present. The minimum and the perpendicular right external iliac artery measures 6.1 and 6.3 mm, respectively with vjhp-br-wknzdexx tortuosity and minimum calcific atherosclerosis present. The minimum and the perpendicular right femoral artery measures 5.9 and 6.1 mm, respectively with minimal tortuosity and none calcific atherosclerosis present. NONVASCULAR: The visualised thyroid gland appears grossly unremarkable. The chest wall and mediastinum is remarkable for prior median sternotomy. The right ventricular free wall and the pericardium is immediately posterior to the sternum though no obvious adhesion is identified. Small lymph nodes are seen in the mediastinum that are small in size, overall considered nonspecific in nature. In the lung windows, no obvious endobronchial lesion is seen and no pleural effusions identified. Dependent changes are seen in the lung bases. Some subsegmental atelectatic changes are seen. Apical scarring is identified. Overall, no suspicious pulmonary nodule is identified. In addition, small calcified granuloma is identified, at image 149, abutting the fissure in the right lung. In the abdomen, the liver and spleen appears unremarkable. Patient is post cholecystectomy. The adrenal glands are not enlarged. The pancreas appears unremarkable. No acute renal pathology is seen and no hydronephrosis or perirenal fluid collections identified. However, cortical scarring is identified in both kidneys. Bowel is not well assessed by CT angiography as enteric contrast is not given. No obvious bowel dilation is identified. The appendix appears unremarkable. The prostate gland is prominent with heterogeneous appearance with punctate calcification identified. Correlate clinically. The prostate gland is not prominent. Some wall thickening is seen that could in part due to limited obstruction and in part due to nondistention. Surgical clips are seen in both groins level, likely due to prior hernia repair. No free air free fluid seen abdomen and pelvis and no significant retroperitoneal adenopathy is identified. Small lymph nodes are seen in both groins, considered nonspecific in nature. In the lung windows, no obvious endobronchial lesion is seen and no pleural effusion is identified. Only minimal degenerative changes are noted. CONCLUSIONS: 1. Patient has a diagnosis of aortic stenosis. Aortic valve is tricuspid. Agatston score is almost 2000. Aortic valve area is 0.44 sq mm. Only minimal calcification is identified at the aortic root. Noncalcific atherosclerosis seen at the level of the aortic diaphragmatic hiatus. No mitral annular calcification is identified. Dimensions that may be helpful for TAVR as described above. 2. Patient is post coronary artery bypass surgery and three patent grafts are seen. 3. No acute pulmonary pathology. Evidence of prior granulomatous disease. 4. Other findings as described above. 5. An addendum will be dictated by the [facility] Radiologist regarding the nonvascular findings. Signed: Julito Morataya MD Report Verified Date/Time: 12/05/2016 14:38:32 Reading Location: [place] [address] Cardiology MRI -Creatinine (12/05/2016 11:05 AM) Component Value Ref Range POC-Creatinine 1.3Comment: TESTED AT [address] 0.6 - 1.3 mg/dL [address] POC-EGFR 52 mL/min/1.73M2 Specimen Performing Laboratory Blood [facility] [address] [address] after 08/18/2016
--- OUTSIDE RECORDS SUMMARY | 2017-08-19 18:03 | XMS REPORT ---
:1930 [facility] Address [address] [place] [address] [place] [id number] Care Team Providers Name Role Phone INDIRA LEO Unavailable Unavailable EKATERINA GALO Unavailable Unavailable SYSTEM, NOT IN PROVIDER Unavailable Unavailable Problems This patient has no known problems. Allergies, Adverse Reactions, Alerts This patient has no known allergies or adverse reactions. Medications This patient has no known medications. Results Test Description Test Time Test Comments Text Results Atomic Results Result Comments B-TYPE NATRIURETIC FACTOR (BNP) 2017-01-18 11:56:00 Test Item Value Reference Range Comments B-TYPE NATRIURETIC PEPTIDE (BEAKER) (test lxzq=632) 244 pg/mL 0-100 [id number] 11:53:00 Test Item Value Reference Range Comments MAGNESIUM (BEAKER) (test kjju=262) 2.1 mg/dL 1.6-2.6 BASIC METABOLIC [id number] 11:53:00 Test Item Value Reference Range Comments SODIUM (BEAKER) (test 135 meq/L 136-145 ztef=038) POTASSIUM (BEAKER) (test 4.5 meq/L 3.5-5.1 bcqw=084) CHLORIDE (BEAKER) (test 97 meq/L 98-107 mokr=976) CO2 (BEAKER) (test 30 meq/L 22-29 poqj=840) BLOOD UREA NITROGEN 19 mg/dL 7-21 (BEAKER) (test crhm=048) CREATININE (BEAKER) (test 1.37 mg/dL 0.57-1.25 knoe=851) GLUCOSE RANDOM (BEAKER) 94 mg/dL 70-105 (test sxgs=651) CALCIUM (BEAKER) (test 9.8 mg/dL 8.4-10.2 pnjk=792) EGFR (BEAKER) (test 49 mL/min/1.73 sq m ESTIMATED GFR IS NOT cfvn=6998) ACCURATE CREATININE CLEARANCE IN PREDICTING GLOMERULAR FILTRATION RATE. ESTIMATED GFR IS NOT APPLICABLE FOR DIALYSIS PATIENTS. BASIC METABOLIC [id number] 04:53:00 Test Item Value Reference Range Comments SODIUM (BEAKER) (test 139 meq/L 136-145 ehjb=740) POTASSIUM (BEAKER) (test 3.4 meq/L 3.5-5.1 bdyj=673) CHLORIDE (BEAKER) (test 101 meq/L 98-107 nmrb=626) CO2 (BEAKER) (test 29 meq/L 22-29 copd=068) BLOOD UREA NITROGEN 23 mg/dL 7-21 (BEAKER) (test qgkj=290) CREATININE (BEAKER) (test 1.29 mg/dL 0.57-1.25 wkyu=990) GLUCOSE RANDOM (BEAKER) 90 mg/dL 70-105 (test xxwy=442) CALCIUM (BEAKER) (test 8.7 mg/dL 8.4-10.2 hivd=639) EGFR (BEAKER) (test 53 mL/min/1.73 sq m ESTIMATED GFR IS NOT ucaw=6752) ACCURATE CREATININE CLEARANCE IN PREDICTING GLOMERULAR FILTRATION RATE. ESTIMATED GFR IS NOT APPLICABLE FOR DIALYSIS PATIENTS. CBC (HEMOGRAM ONLY)2017-01-05 04:34:00 Test Item Value Reference Range Comments WHITE BLOOD CELL COUNT (BEAKER) (test tjsk=471) 14.2 K/ L 3.5-10.5 RED BLOOD CELL COUNT (BEAKER) (test fykw=192) 3.60 M/ L 4.63-6.08 HEMOGLOBIN (BEAKER) (test zigc=987) 11.1 GM/DL 13.7-17.5 HEMATOCRIT (BEAKER) (test sabv=975) 33.7 % 40.1-51.0 MEAN CORPUSCULAR VOLUME (BEAKER) (test ixri=506) 93.6 fL 79.0-92.2 MEAN CORPUSCULAR HEMOGLOBIN (BEAKER) (test 30.8 pg 25.7-32.2 oknv=479) MEAN CORPUSCULAR HEMOGLOBIN CONC (BEAKER) (test 32.9 GM/DL 32.3-36.5 uili=270) RED CELL DISTRIBUTION WIDTH (BEAKER) (test 13.4 % 11.6-14.4 hppe=364) PLATELET COUNT (BEAKER) (test sobd=388) 118 K/CU MM 150-450 MEAN PLATELET VOLUME (BEAKER) (test gbgg=955) 10.2 fL 9.4-12.4 NUCLEATED RED BLOOD CELLS (BEAKER) (test 0 /100 WBC 0-0 yiei=053) [id number] 16:04:00 Test Item Value Reference Range Comments ACTIVATED CLOTTING TIME 131 sec TESTED AT [place] [address] [facility] (BEAKER) (test ksai=932) [place] [address] [id number] 14:11:00 Test Item Value Reference Range Comments ACTIVATED CLOTTING TIME 147 sec TESTED AT [address] (BEAKER) (test kpvx=866) [place] [address] [id number] 11:50:00 Test Item Value Reference Range Comments ACTIVATED CLOTTING TIME 164 sec TESTED AT [address] (BEAKER) (test nigo=645) [place] [address] [id number] 11:27:00 Test Item Value Reference Range Comments ACTIVATED CLOTTING TIME 169 sec TESTED AT [address] (BEAKER) (test ftxl=042) [place] [address] [id number] 10:31:00 Test Item Value Reference Range Comments ACTIVATED CLOTTING TIME 169 sec TESTED AT [place] [address] [facility] (BE[facility] (test coyh=730) [place] [address] [id number] 09:39:00 Test Item Value Reference Range Comments ACTIVATED CLOTTING TIME 334 sec TESTED AT [address] (BEAKER) (test prkt=637) [place] [address] B-TYPE NATRIURETIC FACTOR (BNP)2016-12-14 13:30:00 Test Item Value Reference Range Comments B-TYPE NATRIURETIC PEPTIDE (BEAKER) (test 583 pg/mL 0-100 vyzm=238) BASIC METABOLIC [id number] 13:27:00 Test Item Value Reference Range Comments SODIUM (BEAKER) (test 139 meq/L 136-145 xpfd=327) POTASSIUM (BEAKER) (test 3.9 meq/L 3.5-5.1 knim=899) CHLORIDE (BEAKER) (test 101 meq/L 98-107 usgc=334) CO2 (BEAKER) (test 30 meq/L 22-29 vcki=700) BLOOD UREA NITROGEN 16 mg/dL 7-21 (BEAKER) (test pzeg=868) CREATININE (BEAKER) (test 1.21 mg/dL 0.57-1.25 mcnv=946) GLUCOSE RANDOM (BEAKER) 90 mg/dL 70-105 (test jgvr=268) CALCIUM (BEAKER) (test 9.7 mg/dL 8.4-10.2 gtgl=287) EGFR (BEAKER) (test 57 mL/min/1.73 sq m ESTIMATED GFR IS NOT fjin=7674) ACCURATE CREATININE CLEARANCE IN PREDICTING GLOMERULAR FILTRATION RATE. ESTIMATED GFR IS NOT APPLICABLE FOR DIALYSIS PATIENTS. [id number] 13:27:00 Test Item Value Reference Range Comments ALBUMIN (BEAKER) (test btil=5035) 4.3 g/dL 3.5-5.0 CBC W/PLT COUNT & AUTO [id number] 13:08:00 Test Item Value Reference Range Comments WHITE BLOOD CELL COUNT (BEAKER) (test aaar=655) 11.8 K/ L 3.5-10.5 RED BLOOD CELL COUNT (BEAKER) (test yvme=527) 4.31 M/ L 4.63-6.08 HEMOGLOBIN (BEAKER) (test yfxx=259) 13.5 GM/DL 13.7-17.5 HEMATOCRIT (BEAKER) (test cfym=923) 40.3 % 40.1-51.0 MEAN CORPUSCULAR VOLUME (BEAKER) (test ajwl=533) 93.5 fL 79.0-92.2 MEAN CORPUSCULAR HEMOGLOBIN (BEAKER) (test 31.3 pg 25.7-32.2 bfth=048) MEAN CORPUSCULAR HEMOGLOBIN CONC (BEAKER) (test 33.5 GM/DL 32.3-36.5 ibjy=230) RED CELL DISTRIBUTION WIDTH (BEAKER) (test 13.5 % 11.6-14.4 wvak=540) PLATELET COUNT (BEAKER) (test tjcu=490) 180 K/CU MM 150-450 MEAN PLATELET VOLUME (BEAKER) (test woug=535) 10.3 fL 9.4-12.4 NUCLEATED RED BLOOD CELLS (BEAKER) (test 0 /100 WBC 0-0 cqkb=535) NEUTROPHILS RELATIVE PERCENT (BEAKER) (test 71 % wtnt=696) LYMPHOCYTES RELATIVE PERCENT (BEAKER) (test 12 % rygm=986) MONOCYTES RELATIVE PERCENT (BEAKER) (test 6 % nsby=552) EOSINOPHILS RELATIVE PERCENT (BEAKER) (test 9 % omac=516) BASOPHILS RELATIVE PERCENT (BEAKER) (test 1 % odpi=138) NEUTROPHILS ABSOLUTE COUNT (BEAKER) (test 8.41 K/ L 1.78-5.38 lfvs=940) LYMPHOCYTES ABSOLUTE COUNT (BEAKER) (test 1.44 K/ L 1.32-3.57 cyyn=829) MONOCYTES ABSOLUTE COUNT (BEAKER) (test 0.76 K/ L 0.30-0.82 kggs=892) EOSINOPHILS ABSOLUTE COUNT (BEAKER) (test 1.11 K/ L 0.04-0.54 bhht=731) BASOPHILS ABSOLUTE COUNT (BEAKER) (test 0.07 K/ L 0.01-0.08 nidq=118) IMMATURE GRANULOCYTES-RELATIVE PERCENT (BEAKER) 0 % 0-1 (test ltjr=6152) PROTHROMBIN [id number] 13:07:00 Test Item Value Reference Range Comments PROTIME (BEAKER) (test eevd=235) 13.4 seconds 11.7-14.7 INR (BEAKER) (test ikzl=020) 1.0 <=5.9 RECOMMENDED COUMADIN/WARFARIN INR THERAPY RANGESSTANDARD DOSE: 2.0 - 3.0 Includes: PROPHYLAXIS forvenous thrombosis, systemic embolization; TREATMENT for venous thrombosis and/or pulmonary embolus.HIGH RISK: Target INR is 2.5-3.5 for patients with mechanical heart valves.[id number] 13:21:00 Test Item Value Reference Range Comments POC-CREATININE (BEAKER) 1.3 mg/dL 0.6-1.[address] [facility] [address] (test qbmc=8279) [facility] [address] POC-EGFR (BEAKER) (test 52 mL/min/1.73M2 loyh=0093)
[2017-08-19 19:38] LABS: Absolute Lymphocytes (CBC) 0.3 K/uL (0.7-4.9); Absolute Monocytes 0.4 K/uL (0.1-1.3); Absolute Neutrophil 11.6 K/uL (1.8-8.0); Basophils % 0.1 % (0-1.3); Eosinophils % 1.5 % (0-4.4); Hematocrit 43.5 % (39.6-49.0); Lymphocytes % 2.8 % (15.3-44.8); MCH 30.4 pg (27.0-35.0); MCV 90.1 fL (80-100); MPV 7.8 fL (7.6-11.3); Monocytes % 3.6 % (3.3-12.3); RBC Red Blood Cell Count 4.83 M/uL (4.33-5.43)
--- NOTE | 2017-08-19 19:39 | RAD REPORT ---
EXAM DESCRIPTION: Amanda Single View08/19/2017 7:31 pm CLINICAL HISTORY: sob COMPARISON: October 2016 FINDINGS: The lungs appear clear of acute infiltrate. The heart is normal size. Postsurgical change s involve the chest IMPRESSION: No acute abnormalities displayed
[2017-08-19] MEDS ORDERED: HYDRALAZINE HCL 20 MG/ML VIAL ONE (19:48)
[2017-08-19 19:49] LABS: Potassium 3.7 mEq/L (3.6-5.0)
[2017-08-19 19:50] LABS: Protime INR 0.97
[2017-08-19 19:52] LABS: Bilirubin Total 0.8 mg/dL (0.3-1.2); Protein, Total 7.6 g/dL (6.0-8.3)
[2017-08-19 20:02] LABS: Urine Blood NEGATIVE (NEG); Urine Glucose NEGATIVE (NEG); Urine Protein NEGATIVE (NEG); Urine Specific Gravity 1.015 (1.005-1.030)
--- NOTE | 2017-08-19 20:22 | RAD REPORT ---
EXAM DESCRIPTION: [facility] [employer]08/19/2017 8:08 pm CLINICAL HISTORY: left leg pain and swelling. COMPARISON: September 2016 FINDINGS: Left common femoral, superficial femoral, popliteal and posterior tibial veins are compre ssible and demonstrate augmentation. Doppler demonstrates good flow. IMPRESSION: No evidence of deep venous thrombosis involving the left lower extremity.
[2017-08-19 20:40] LABS: Blood Morphology Comment NOT SEEN (NOT SEEN); Platelet Estimate ADEQ; Urine White Blood Cell Casts OK
--- NOTE | 2017-08-19 21:32 | ER ---
Nurse's Notes [facility] Name: Leonides Zepeda Age: 87 yrs Sex: Male : 1930 Arrival Date: 08/19/2017 Time: 18:02 Bed 25 Private MD: Marleny Wright C Diagnosis: Cellulitis of left lower limb;Chronic kidney disease (CKD);Dehydration;Kaposi's sarcoma of skin Presentation: 08/19 18:08 Presenting complaint: Patient states: I am having pain, redness, swelling to my LLE. Pt la1 reports hx of sarcoma and CHF. Transition of care: patient was not received from another setting of care. Onset of symptoms was August 19, 2017. Initial Sepsis Screen: Does the patient meet any 2 criteria? HR > 90 bpm. Yes Does the patient have a suspected source of infection? Yes: Skin breakdown/wound. Care prior to arrival: None. 18:08 Method Of Arrival: Wheelchair la1 18:08 Acuity: NARGIS 3 la1 Historical: - Allergies: 18:09 Codeine; la1 18:09 Hydrocodone-Acetaminophen; la1 18:09 Lyrica; la1 18:09 tramadol; la1 18:09 Vicodin; la1 - Home Meds: 20:48 metoprolol tartrate 50 mg Oral tab 2 tabs once daily [Active]; aspirin 81 mg Oral chew kr2 1 tab once daily [Active]; Furosemide Oral once daily for Edema [Active]; Plavix 75 mg Oral tab 1 tab once daily [Active]; Probiotic 10 billion cell Oral cap [Active]; Vitamin D Oral 1000 unit [Active]; Vitamin C 500 mg Oral tab [Active]; Vitamin B-12 1,000 mcg Oral TbER [Active]; omeprazole 20 mg Oral cpDR 1 cap once daily [Active]; Multiple Vitamins Oral tab [Active]; glucosamine sulfate 500 mg Oral tab [Active]; Crestor 10 mg Oral tab 1 tab once daily [Active]; - PMHx: 18:09 GERD; High Cholesterol; Hypertension; sarcoma; CHF; la1 20:49 Kaposi's Sarcoma; kr2 - PSHx: 20:50 Heart Valve Replacement; Cardiac Stents x 2; CABG; kr2 - Immunization history:: Adult Immunizations up to date. - Social history:: Smoking status: Patient/guardian denies using tobacco. - Family history:: not pertinent. - Hospitalizations: : No recent hospitalization is reported. - History obtained from: . Screenin:35 Abuse screen: Denies threats or abuse. Denies injuries from another. Nutritional kr2 screening: No deficits noted. Tuberculosis screening: No symptoms or risk factors identified. Fall Risk IV access (20 points). Assessment: 18:40 General: Appears in no apparent distress. comfortable, well groomed, well developed, kr2 well nourished, Behavior is calm, cooperative, appropriate for age. Pain: Complains of pain in left lower leg Pain currently is 5 out of 10 on a pain scale. at worst was 9 out of 10 on a pain scale. Quality of pain is described as aching, tightness Pain began gradually, Is continuous, Alleviated by rest, Aggravated by increased activity. Neuro: Level of Consciousness is awake, alert, obeys commands, Oriented to person, place, time, situation, Appropriate for age Mail Truck Driver are equal bilaterally Moves all extremities. Speech is normal, Facial symmetry appears normal, Pupils are PERRLA, Intact. Cardiovascular: Capillary refill < 3 seconds in bilateral fingers Patient's skin is warm and dry. Pulses are palpable in right radial artery, right dorsalis pedis artery, left radial artery and left dorsalis pedis artery Edema is 2+ to left ankle and left foot. Respiratory: Airway is patent Respiratory effort is even, unlabored, Respiratory pattern is regular, symmetrical. GI: Abdomen is flat, non-distended, Abd is soft and non tender X 4 quads. EENT: Oral mucosa is moist. Derm: Skin is intact, is healthy with good turgor, Skin is pink, warm \T\ dry. Left lower leg with redness, warmth and swelling. Patient states he has Kaposi's Sarcoma and his last treatment was around March, he was diagnosed about 5 years ago. Reports he normally has some swelling and the skin is always dark but the redness and pain are new. Musculoskeletal: Circulation, motion, and sensation intact. 19:45 Reassessment: Patient appears in no apparent distress at this time. Patient and/or kr2 family updated on plan of care and expected duration. Pain level reassessed. Patient is alert, oriented x 3, equal unlabored respirations, skin warm/dry/pink. 21:38 Reassessment: Patient appears in no apparent distress at this time. Patient and/or kr2 family updated on plan of care and expected duration. Pain level reassessed. Patient is alert, oriented x 3, equal unlabored respirations, skin warm/dry/pink. Patient states feeling better. Patient states symptoms have improved. Vital Signs: 18:09 Pulse 106; Resp 19; Temp 98.6(TE); Pulse Ox 97% on R/A; Weight 60.78 kg (R); la1 18:10 BP 188 / 80; la1 20:06 BP 122 / 55; Pulse 81; Resp 16; Pulse Ox 99% on R/A; kr2 20:51 BP 122 / 55; Pulse 87; Resp 15; Pulse Ox 100% on R/A; kr2 21:40 BP 114 / 40; Pulse 81; Resp 16; Pulse Ox 98% on R/A; kr2 ED Course: 18:02 Patient arrived in ED. as 18:04 Marleny Wright MD is Private Physician. as 18:08 Triage completed. la1 18:09 Arm band placed on left wrist. la1 18:39 Nerissa Mitchell, GEM is Primary Nurse. kr2 18:40 Patient has correct armband on for positive identification. Bed in low position. Call kr2 light in reach. Side rails up X2. Adult w/ patient. Pulse ox on. NIBP on. Door closed. Warm blanket given. Head of bed elevated. 18:51 Trice Franklin F[facility]. kav 18:51 Nick Baptiste MD is Attending Physician. kav 19:20 Initial lab(s) drawn, by vt, sent to lab. First set of blood cultures drawn by me. kr2 Inserted saline lock: 20 gauge in right antecubital area, using aseptic technique. Blood collected. 19:31 CXR XRAY In Process Unspecified. EDMS 19:45 Ultrasound completed. Patient tolerated well. sg3 19:55 Notified Nurse Practitioner and/or Physician Salt Washer of a critical lab result(s), kr2 D-Dimer 919. 19:56 Urine collected: clean catch specimen, clear. kr2 20:08 US Extremity Venous Uni Ltd In Process Unspecified. EDMS 21:30 Marleny Wright MD is Referral Physician. kav 22:04 No provider procedures requiring assistance completed. IV discontinued, intact, kr2 bleeding controlled, No redness/swelling at site. Pressure dressing applied. Administered Medications: 20:07 Drug: hydrALAZINE 10 mg Route: IV; Rate: bolus; Site: right antecubital; kr2 21:39 Follow up: Response: No adverse reaction; IV Status: Completed infusion kr2 Outcome: 21:31 Discharge ordered by . ketty 22:04 Discharged to home via wheelchair, with family. kr2 22:04 Condition: good 22:04 Discharge instructions given to patient, family, Instructed on discharge instructions, follow up and referral plans. medication usage, Demonstrated understanding of instructions, follow-up care, medications, Prescriptions given X 1. 22:05 Patient left the ED. kr2 Signatures: Dispatcher [employer] EDMS Trice Franklin, AIR TRAFFIC CONTROL MANAGER Alysia Beckett Lee RN RN gm1 Nerissa Mitchell RN RN kr2 Trina Grossman3
--- NOTE | 2017-08-19 21:32 | EDPHYS ---
Physician Documentation [facility] Name: Leonides Zepeda Age: 87 yrs Sex: Male : 1930 Arrival Date: 08/19/2017 Time: 18:02 Bed 25 Private MD: Marleny Wright C ED Physician Nick Baptiste HPI: 08/19 19:10 This 87 yrs old Male presents to ER via Wheelchair with complaints of Leg kav Swelling. 19:10 The patient presents with pain, that is acute, swelling. The complaints affect the left kav calf. Context: The problem was sustained at home, resulted from an unknown cause, the patient can partially bear weight, can ambulate using a cane, Problem is a result from a previous injury:. pmhx: Kaposi Sarcoma LLE. 19:13 Onset: The symptoms/episode began/occurred acutely, this morning. Modifying factors: kav The symptoms are alleviated by elevating leg, the symptoms are aggravated by movement, weight bearing. Associated signs and symptoms: Pertinent positives: swelling, warmth, of the left calf, Pertinent negatives fever, nausea, numbness, rash, tingling, vomiting, weakness. Treatment prior to arrival includes: elevation of the extremity. Severity of symptoms: At their worst the symptoms were moderate, just prior to arrival. The patient has not experienced similar symptoms in the past. 21:27 currently receiving chemotherapy treatment for Kaposi Sarcoma LLE. patient reports kav pmhx: chronic kidney disease. Historical: - Allergies: 18:09 Codeine; la1 18:09 Hydrocodone-Acetaminophen; la1 18:09 Lyrica; la1 18:09 tramadol; la1 18:09 Vicodin; la1 - Home Meds: 20:48 metoprolol tartrate 50 mg Oral tab 2 tabs once daily [Active]; aspirin 81 mg Oral chew kr2 1 tab once daily [Active]; Furosemide Oral once daily for Edema [Active]; Plavix 75 mg Oral tab 1 tab once daily [Active]; Probiotic 10 billion cell Oral cap [Active]; Vitamin D Oral 1000 unit [Active]; Vitamin C 500 mg Oral tab [Active]; Vitamin B-12 1,000 mcg Oral TbER [Active]; omeprazole 20 mg Oral cpDR 1 cap once daily [Active]; Multiple Vitamins Oral tab [Active]; glucosamine sulfate 500 mg Oral tab [Active]; Crestor 10 mg Oral tab 1 tab once daily [Active]; - PMHx: 18:09 GERD; High Cholesterol; Hypertension; sarcoma; CHF; la1 20:49 Kaposi's Sarcoma; kr2 - PSHx: 20:50 Heart Valve Replacement; Cardiac Stents x 2; CABG; kr2 - Immunization history:: Adult Immunizations up to date. - Social history:: Smoking status: Patient/guardian denies using tobacco. - Family history:: not pertinent. - Hospitalizations: : No recent hospitalization is reported. - History obtained from: . ROS: 19:13 Constitutional: Negative for fever, chills, and weight loss, Eyes: Negative for injury, kav pain, redness, and discharge, ENT: Negative for injury, pain, and discharge, Neck: Negative for injury, pain, and swelling, Respiratory: Negative for shortness of breath, cough, wheezing, and pleuritic chest pain, Abdomen/GI: Negative for abdominal pain, nausea, vomiting, diarrhea, and constipation, Back: Negative for injury and pain, : Negative for injury, bleeding, discharge, and swelling, MS/Extremity: Negative for injury and deformity, Neuro: Negative for headache, weakness, numbness, tingling, and seizure, Psych: Negative for depression, anxiety, suicide ideation, homicidal ideation, and hallucinations, Allergy/Immunology: Negative for hives, rash, and allergies, Endocrine: Negative for neck swelling, polydipsia, polyuria, polyphagia, and marked weight changes, Hematologic/Lymphatic: Negative for swollen nodes, abnormal bleeding, and unusual bruising. 19:13 Cardiovascular: Positive for edema, Negative for chest pain, orthopnea, palpitations. 19:13 Skin: Positive for cellulitis, erythema, swelling, of the left leg. Exam: 19:13 Constitutional: This is a well developed, well nourished patient who is awake, alert, kav and in no acute distress. Head/Face: Normocephalic, atraumatic. Eyes: Pupils equal round and reactive to light, extra-ocular motions intact. Lids and lashes normal. Conjunctiva and sclera are non-icteric and not injected. Cornea within normal limits. Periorbital areas with no swelling, redness, or edema. ENT: Nares patent. No nasal discharge, no septal abnormalities noted. Tympanic membranes are normal and external auditory canals are clear. Oropharynx with no redness, swelling, or masses, exudates, or evidence of obstruction, uvula midline. Mucous membranes moist. Neck: Trachea midline, no thyromegaly or masses palpated, and no cervical lymphadenopathy. Supple, full range of motion without nuchal rigidity, or vertebral point tenderness. No Meningismus. Chest/axilla: Normal chest wall appearance and motion. Nontender with no deformity. No lesions are appreciated. Respiratory: Lungs have equal breath sounds bilaterally, clear to auscultation and percussion. No rales, rhonchi or wheezes noted. No increased work of breathing, no retractions or nasal flaring. Abdomen/GI: Soft, non-tender, with normal bowel sounds. No distension or tympany. No guarding or rebound. No evidence of tenderness throughout. Back: No spinal tenderness. No costovertebral tenderness. Full range of motion. MS/ Extremity: Pulses equal, no cyanosis. Neurovascular intact. Full, normal range of motion. Neuro: Awake and alert, GCS 15, oriented to person, place, time, and situation. Cranial nerves II-XII grossly intact. Motor strength 5/5 in all extremities. Sensory grossly intact. Cerebellar exam normal. Normal gait. Psych: Awake, alert, with orientation to person, place and time. Behavior, mood, and affect are within normal limits. 19:13 Skin: cellulitis, that is moderate, confluent, on the left calf. kav Vital Signs: 18:09 Pulse 106; Resp 19; Temp 98.6(TE); Pulse Ox 97% on R/A; Weight 60.78 kg (R); la1 18:10 BP 188 / 80; la1 20:06 BP 122 / 55; Pulse 81; Resp 16; Pulse Ox 99% on R/A; kr2 20:51 BP 122 / 55; Pulse 87; Resp 15; Pulse Ox 100% on R/A; kr2 21:40 BP 114 / 40; Pulse 81; Resp 16; Pulse Ox 98% on R/A; kr2 MDM: 18:51 Patient medically screened. kav 21:27 Data reviewed: vital signs, nurses notes, lab test result(s), radiologic studies. ED kav course: discussed ddimer results with er attending. patient is not sob and there is no reported dvt in lle. . 08/19 19:07 Order name: CBC with Diff; Complete Time: : kav 08/19 19:07 Order name: CMP; Complete Time: : kav 08/19 19:07 Order name: PT-INR; Complete Time: 21: kav 08/19 19:07 Order name: Ptt, Activated; Complete Time: : kav 08/19 19:07 Order name: BNP; Complete Time: : kav 08/19 19:08 Order name: Blood Culture Adult (2) 08/19 19:07 Order name: US Extremity Venous Uni Ltd; Complete Time: : kav 08/19 19:07 Order name: CXR XRAY; Complete Time: : [facility] 08/19 19:08 Order name: D-Dimer [facility] 08/19 19:08 Order name: Blood Culture EDMT 08/19 19:31 Order name: D-Dimer; Complete Time: 21: EDMS 08/19 19:45 Order name: CBC Smear Scan; Complete Time: : EDMT 08/19 20:00 Order name: Urine Dipstick--Ancillary (enter results); Complete Time: 21:17 em1 08/19 19:08 Order name: IV Saline Lock; Complete Time: 19:27 ka 08/19 19:08 Order name: Labs collected and sent; Complete Time: 19:28 ka 08/19 20:00 Order name: Urine Dipstick-Ancillary (obtain specimen); Complete Time: 20:00 em1 Administered Medications: 20:07 Drug: hydrALAZINE 10 mg Route: IV; Rate: bolus; Site: right antecubital; kr2 21:39 Follow up: Response: No adverse reaction; IV Status: Completed infusion kr2 Disposition: 08/19/17 21:31 Discharged to Home. Impression: Cellulitis of left lower limb, Chronic kidney disease (CKD), Dehydration, Kaposi's sarcoma of skin. - Condition is Stable. - Discharge Instructions: Cellulitis, [id number], Dehydration, Adult, [id number]. - Prescriptions for Clindamycin HCl 300 mg Oral Capsule - take 1 capsule by ORAL route every 6 hours for 10 days; 40 capsule. - Medication Reconciliation Form, Thank You Letter, Antibiotic Education, Prescription Opioid Use form. - Follow up: Marleny Wright MD; When: 5 - 6 days; Reason: If symptoms return, Recheck today's complaints, Continuance of care, Re-evaluation by your physician. - Problem is new. - Symptoms have improved. - Notes: Signatures: Dispatcher [employer] EDMS Trice Franklin, Neftaly Soriano em1 Molina Marley RN RN la1 Nerissa Mitchell RN RN kr2 Corrections: (The following items were deleted from the chart) 19:31 19:08 D-Dimer ordered. EDMS EDMS
[2017-08-19 22:19] VITALS: TEMP 98.6
[2017-08-19 22:25] VITALS: BP 114/40; O2SAT 98
== END 2017-08-19 22:05 | disposition home or self-care (01) ==
LOC: ER 18:01
DX: L03.116 Cellulitis of left lower limb (principal); E86.0 Dehydration; C46.0 Kaposi's sarcoma of skin; I10 Essential (primary) hypertension; I50.9 Heart failure, unspecified; N18.9 Chronic kidney disease, unspecified; Z95.1 Presence of aortocoronary bypass graft; Z79.01 Long term (current) use of anticoagulants; Z79.82 Long term (current) use of aspirin; Z88.5 Allergy status to narcotic agent; Z88.6 Allergy status to analgesic agent; Z88.8 Allergy status to other drugs, medicaments and biological substances; Z95.2 Presence of prosthetic heart valve
CPT/HCPCS: 36415; 71045; 80053; 81003; 83880; 85025; 85379; 85610; 85730; 87040 ×2; 93971; 96365; 96366; 99284; J0360

== ENCOUNTER 2019-03-10 18:05 | Emergency (ER) | payer OTHER ==
--- NOTE | 2019-03-10 18:45 | ER ---
Nurse's Notes [facility] Name: Leonides Zepeda Age: 88 yrs Sex: Male : 1930 Arrival Date: 03/10/2019 Time: 18:08 Bed 28 Private MD: Diagnosis: Local infection of the skin and subcutaneous tissue, unspecified Presentation: 03/10 18:23 Presenting complaint: Patient states: He has a rash on his head and the oncologist la1 stated that if it began having drainage then he needed to be seen. Transition of care: patient was not received from another setting of care. Onset of symptoms was March 10, 2019. Risk Assessment: Do you want to hurt yourself or someone else? Patient reports no desire to harm self or others. Initial Sepsis Screen: Does the patient meet any 2 criteria? No. Patient's initial sepsis screen is negative. Does the patient have a suspected source of infection? No. Patient's initial sepsis screen is negative. Care prior to arrival: None. 18:23 Method Of Arrival: Ambulatory la1 18:23 Acuity: NARGIS 3 la1 Historical: - Allergies: 18:23 Codeine; la1 18:23 Hydrocodone-Acetaminophen; la1 18:23 Lyrica; la1 18:23 tramadol; la1 18:23 Vicodin; la1 - PMHx: 18:23 CHF; GERD; High Cholesterol; Hypertension; Kaposi's Sarcoma; sarcoma; la1 - Immunization history:: Adult Immunizations up to date. - Social history:: Smoking status: Patient/guardian denies using tobacco. - Ebola Screening: : No symptoms or risks identified at this time. Screenin:30 Abuse screen: Denies threats or abuse. Nutritional screening: No deficits noted. tr5 Tuberculosis screening: No symptoms or risk factors identified. Fall Risk None identified. Assessment: 18:30 General: Appears in no apparent distress. Behavior is calm, cooperative, appropriate tr5 for age. Pain: Denies pain. Neuro: Level of Consciousness is awake, alert, obeys commands, Oriented to person, place, time, Spray Machine Loader are equal bilaterally Moves all extremities. Cardiovascular: Heart tones present Capillary refill < 3 seconds. Respiratory: Airway is patent Respiratory effort is even, unlabored, Respiratory pattern is regular, symmetrical. GI: No signs and/or symptoms were reported involving the gastrointestinal system. : No signs and/or symptoms were reported regarding the genitourinary system. EENT: No signs and/or symptoms were reported regarding the EENT system. Derm: Rash noted that is draining clear fluid. Musculoskeletal: No signs and/or symptoms reported regarding the musculoskeletal system. Vital Signs: 18:24 BP 186 / 76; Pulse 84; Resp 16; Temp 98.4; Pulse Ox 100% on R/A; la1 ED Course: 18:08 Patient arrived in ED. rg4 18:22 Arm band placed on left wrist. la1 18:24 Triage completed. la1 18:29 Michael Lerma PA is PHCP. jr8 18:29 Irving Ruiz MD is Attending Physician. jr8 18:30 Bed in low position. Call light in reach. Side rails up X 1. tr5 18:34 Harley Regalado, GEM is Primary Nurse. tr5 18:53 No provider procedures requiring assistance completed. Patient did not have IV access tr5 during this emergency room visit. Administered Medications: No medications were administered Outcome: 18:45 Discharge ordered by . jr8 18:53 Discharged to tr5 18:53 Discharged to home 18:53 Condition: stable 18:53 Discharge instructions given to patient, Instructed on discharge instructions, follow up and referral plans. medication usage, Demonstrated understanding of instructions, follow-up care, medications, Prescriptions given X 2. 18:54 Patient left the ED. tr5 Signatures: Michael Lerma PA PA jr8 Molina Marley RN RN la1 Mena Zepeda 4 Harley Regalado RN RN tr5
--- NOTE | 2019-03-10 18:46 | EDPHYS ---
Physician Documentation [facility] Name: Leonides Zepeda Age: 88 yrs Sex: Male : 1930 Arrival Date: 03/10/2019 Time: 18:08 Bed 28 Private MD: ED Physician Irving Ruiz HPI: 03/10 18:46 This 88 yrs old Male presents to ER via Ambulatory with complaints of Rash, jr8 Cancer Patient. 18:46 Onset: The symptoms/episode began/occurred gradually, 4 day(s) ago. Associated signs jr8 and symptoms: Pertinent positives: itching. Severity of symptoms: At their worst the symptoms were mild in the emergency department the symptoms are unchanged. The patient has not experienced similar symptoms in the past. The patient has not recently seen a physician. Stated that he has rash on right side of head and ear. 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 Historical: - Allergies: 18:23 Codeine; la1 18:23 Hydrocodone-Acetaminophen; la1 18:23 Lyrica; la1 18:23 tramadol; la1 18:23 Vicodin; la1 - PMHx: 18:23 CHF; GERD; High Cholesterol; Hypertension; Kaposi's Sarcoma; sarcoma; la1 - Immunization history:: Adult Immunizations up to date. - Social history:: Smoking status: Patient/guardian denies using tobacco. - Ebola Screening: : No symptoms or risks identified at this time. ROS: 18:46 Eyes: Negative for injury, pain, redness, and discharge, ENT: Negative for injury, jr8 pain, and discharge, Neck: Negative for injury, pain, and swelling, Cardiovascular: Negative for chest pain, palpitations, and edema, Respiratory: Negative for shortness of breath, cough, wheezing, and pleuritic chest pain, Abdomen/GI: Negative for abdominal pain, nausea, vomiting, diarrhea, and constipation, Back: Negative for injury and pain, MS/Extremity: Negative for injury and deformity, Neuro: Negative for headache, weakness, numbness, tingling, and seizure. 18:46 Skin: Positive for erythema, rash, of the face and right ear. Exam: 18:46 Head/Face: Normocephalic, atraumatic. Eyes: Pupils equal round and reactive to light, jr8 extra-ocular motions intact. Lids and lashes normal. Conjunctiva and sclera are non-icteric and not injected. Cornea within normal limits. Periorbital areas with no swelling, redness, or edema. ENT: Nares patent. No nasal discharge, no septal abnormalities noted. Tympanic membranes are normal and external auditory canals are clear. Oropharynx with no redness, swelling, or masses, exudates, or evidence of obstruction, uvula midline. Mucous membranes moist. Neck: Trachea midline, no thyromegaly or masses palpated, and no cervical lymphadenopathy. Supple, full range of motion without nuchal rigidity, or vertebral point tenderness. No Meningismus. Cardiovascular: Regular rate and rhythm with a normal S1 and S2. No gallops, murmurs, or rubs. Normal PMI, no JVD. No pulse deficits. Respiratory: Lungs have equal breath sounds bilaterally, clear to auscultation and percussion. No rales, rhonchi or wheezes noted. No increased work of breathing, no retractions or nasal flaring. Abdomen/GI: Soft, non-tender, with normal bowel sounds. No distension or tympany. No guarding or rebound. No evidence of tenderness throughout. Back: No spinal tenderness. No costovertebral tenderness. Full range of motion. MS/ Extremity: Pulses equal, no cyanosis. Neurovascular intact. Full, normal range of motion. Neuro: Awake and alert, GCS 15, oriented to person, place, time, and situation. Cranial nerves II-XII grossly intact. Motor strength 5/5 in all extremities. Sensory grossly intact. Cerebellar exam normal. Normal gait. 18:46 Skin: erythematous, crusted region to right scalp and right ear. No surrounding fluctuance or induration. No other rashes noted. Vital Signs: 18:24 BP 186 / 76; Pulse 84; Resp 16; Temp 98.4; Pulse Ox 100% on R/A; la1 MDM: 18:42 Data reviewed: vital signs, nurses notes, and as a result, I will discharge patient. andrade Data interpreted: Pulse oximetry: on room air is 100 %. Interpretation: normal. 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 ED course: Rash identified on right ear and face. 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 Weeping with honey crusted material. Discussed with them that it may be a staph infection. Will treat as such. To try and get into derm again tomorrow. If not to keep appointment for this upcoming . 18:45 Patient medically screened. jr8 Administered Medications: No medications were administered Disposition: 03/11 16:49 Co-signature as Attending Physician, Irving Ruiz MD. ma2 Disposition: 03/10/19 18:45 Discharged to Home. Impression: Local infection of the skin and subcutaneous tissue, unspecified. - Condition is Stable. - Discharge Instructions: Rash, Cellulitis, Adult, Cgpi-ca-Agrt. - Prescriptions for Augmentin 875- 125 mg Oral Tablet - take 1 tablet by ORAL route every 12 hours for 7 days; 14 tablet. Bactroban 2 % Topical Ointment - Apply to affected area 1 application by TOPICAL route every 12 hours; 30 gram. - Medication Reconciliation Form, Thank You Letter, Antibiotic Education, Prescription Opioid Use form. - Follow up: Private Physician; When: Tomorrow; Reason: Recheck today's complaints, Continuance of care, Re-evaluation by your physician. - Problem is new. - Symptoms have improved. Signatures: Michael Lerma PA PA jr8 Molina Marley, RN RN la1 Irving Ruiz MD MD ma2 Harley Regalado RN RN tr5 Corrections: (The following items were deleted from the chart) 03/10 18:54 18:45 03/10/2019 18:45 Discharged to Home. Impression: Local infection of the skin and tr5 subcutaneous tissue, unspecified. Condition is Stable. Forms are Medication Reconciliation Form, Thank You Letter, Antibiotic Education, Prescription Opioid Use. Follow up: Private Physician; When: Tomorrow; Reason: Recheck today's complaints, Continuance of care, Re-evaluation by your physician. Problem is new. Symptoms have improved. jr8
[2019-03-10 18:58] VITALS: BP 186/76; TEMP 98.4; O2SAT 100
--- OUTSIDE RECORDS SUMMARY | 2019-03-11 07:16 | XMS REPORT ---
:1930 Author [facility] Address [address] [place] [address] [place] [address] Care Team Providers Name Role Phone INDIRA LEO Unavailable Unavailable SCOTTIE GALO Unavailable Unavailable SYSTEM, PROVIDER NOT IN Unavailable Unavailable Problems This patient has no known problems. Allergies, Adverse Reactions, Alerts This patient has no known allergies or adverse reactions. Medications This patient has no known medications. Results Test Description Test Time Test Comments Text Results Atomic Results Result Comments B-TYPE NATRIURETIC FACTOR (BNP) 2017-01-18 11:56:00 Test Item Value Reference Range Comments B-TYPE NATRIURETIC PEPTIDE (BEAKER) (test zrxy=490) 244 pg/mL 0-100 [id number] 11:53:00 Test Item Value Reference Range Comments MAGNESIUM (BEAKER) (test tzkt=047) 2.1 mg/dL 1.6-2.6 BASIC METABOLIC [id number] 11:53:00 Test Item Value Reference Range Comments SODIUM (BEAKER) (test 135 meq/L 136-145 rdnq=544) POTASSIUM (BEAKER) (test 4.5 meq/L 3.5-5.1 ysax=254) CHLORIDE (BEAKER) (test 97 meq/L 98-107 mzch=995) CO2 (BEAKER) (test 30 meq/L 22-29 kbbi=031) BLOOD UREA NITROGEN 19 mg/dL 7-21 (BEAKER) (test bbfb=373) CREATININE (BEAKER) (test 1.37 mg/dL 0.57-1.25 cdgu=508) GLUCOSE RANDOM (BEAKER) 94 mg/dL 70-105 (test pilf=484) CALCIUM (BEAKER) (test 9.8 mg/dL 8.4-10.2 mzco=583) EGFR (BEAKER) (test 49 mL/min/1.73 sq m ESTIMATED GFR IS NOT kbkq=9382) ACCURATE CREATININE CLEARANCE IN PREDICTING GLOMERULAR FILTRATION RATE. ESTIMATED GFR IS NOT APPLICABLE FOR DIALYSIS PATIENTS. BASIC METABOLIC [id number] 04:53:00 Test Item Value Reference Range Comments SODIUM (BEAKER) (test 139 meq/L 136-145 afug=160) POTASSIUM (BEAKER) (test 3.4 meq/L 3.5-5.1 aono=372) CHLORIDE (BEAKER) (test 101 meq/L 98-107 tydy=553) CO2 (BEAKER) (test 29 meq/L 22-29 lbsx=277) BLOOD UREA NITROGEN 23 mg/dL 7-21 (BEAKER) (test pqpz=359) CREATININE (BEAKER) (test 1.29 mg/dL 0.57-1.25 qmro=563) GLUCOSE RANDOM (BEAKER) 90 mg/dL 70-105 (test ippp=765) CALCIUM (BEAKER) (test 8.7 mg/dL 8.4-10.2 besd=117) EGFR (BEAKER) (test 53 mL/min/1.73 sq m ESTIMATED GFR IS NOT baio=7825) ACCURATE CREATININE CLEARANCE IN PREDICTING GLOMERULAR FILTRATION RATE. ESTIMATED GFR IS NOT APPLICABLE FOR DIALYSIS PATIENTS. CBC (HEMOGRAM ONLY)2017-01-05 04:34:00 Test Item Value Reference Range Comments WHITE BLOOD CELL COUNT (BEAKER) (test clqr=432) 14.2 K/ L 3.5-10.5 RED BLOOD CELL COUNT (BEAKER) (test gtgs=246) 3.60 M/ L 4.63-6.08 HEMOGLOBIN (BEAKER) (test anwg=724) 11.1 GM/DL 13.7-17.5 HEMATOCRIT (BEAKER) (test pizi=132) 33.7 % 40.1-51.0 MEAN CORPUSCULAR VOLUME (BEAKER) (test dtsz=684) 93.6 fL 79.0-92.2 MEAN CORPUSCULAR HEMOGLOBIN (BEAKER) (test 30.8 pg 25.7-32.2 fvex=453) MEAN CORPUSCULAR HEMOGLOBIN CONC (BEAKER) (test 32.9 GM/DL 32.3-36.5 llyj=939) RED CELL DISTRIBUTION WIDTH (BEAKER) (test 13.4 % 11.6-14.4 cbmb=288) PLATELET COUNT (BEAKER) (test hnbm=814) 118 K/CU MM 150-450 MEAN PLATELET VOLUME (BEAKER) (test wlul=433) 10.2 fL 9.4-12.4 NUCLEATED RED BLOOD CELLS (BEAKER) (test 0 /100 WBC 0-0 fubw=034) [id number] 16:04:00 Test Item Value Reference Range Comments ACTIVATED CLOTTING TIME 131 sec TESTED AT [place] [address] [facility] (BEAKER) (test wuqm=798) [place] [address] [id number] 14:11:00 Test Item Value Reference Range Comments ACTIVATED CLOTTING TIME 147 sec TESTED AT [place] [address] [facility] (BEAKER) (test ahwf=056) [place] [address] [id number] 11:50:00 Test Item Value Reference Range Comments ACTIVATED CLOTTING TIME 164 sec TESTED AT [place] [address] [facility] (test lcpv=021) [place] [address] [id number] 11:27:00 Test Item Value Reference Range Comments ACTIVATED CLOTTING TIME 169 sec TESTED AT [address] (BEAKER) (test yvbw=415) [place] [address] [id number] 10:31:00 Test Item Value Reference Range Comments ACTIVATED CLOTTING TIME 169 sec TESTED AT [place] [address] [facility] ([facility] (test hzua=421) [place] [address] [id number] 09:39:00 Test Item Value Reference Range Comments ACTIVATED CLOTTING TIME 334 sec TESTED AT [address] (BEAKER) (test uyiy=976) [place] [address] B-TYPE NATRIURETIC FACTOR (BNP)2016-12-14 13:30:00 Test Item Value Reference Range Comments B-TYPE NATRIURETIC PEPTIDE (BEAKER) (test 583 pg/mL 0-100 bqmf=042) BASIC METABOLIC [id number] 13:27:00 Test Item Value Reference Range Comments SODIUM (BEAKER) (test 139 meq/L 136-145 dunt=435) POTASSIUM (BEAKER) (test 3.9 meq/L 3.5-5.1 jlps=247) CHLORIDE (BEAKER) (test 101 meq/L 98-107 skrg=032) CO2 (BEAKER) (test 30 meq/L 22-29 ahha=863) BLOOD UREA NITROGEN 16 mg/dL 7-21 (BEAKER) (test ajgy=432) CREATININE (BEAKER) (test 1.21 mg/dL 0.57-1.25 nwuk=433) GLUCOSE RANDOM (BEAKER) 90 mg/dL 70-105 (test npdl=616) CALCIUM (BEAKER) (test 9.7 mg/dL 8.4-10.2 ipko=844) EGFR (BEAKER) (test 57 mL/min/1.73 sq m ESTIMATED GFR IS NOT amoi=2177) ACCURATE CREATININE CLEARANCE IN PREDICTING GLOMERULAR FILTRATION RATE. ESTIMATED GFR IS NOT APPLICABLE FOR DIALYSIS PATIENTS. [id number] 13:27:00 Test Item Value Reference Range Comments ALBUMIN (BEAKER) (test bjvj=3463) 4.3 g/dL 3.5-5.0 CBC W/PLT COUNT & AUTO [id number] 13:08:00 Test Item Value Reference Range Comments WHITE BLOOD CELL COUNT (BEAKER) (test xwjv=099) 11.8 K/ L 3.5-10.5 RED BLOOD CELL COUNT (BEAKER) (test ydpj=123) 4.31 M/ L 4.63-6.08 HEMOGLOBIN (BEAKER) (test ngzk=053) 13.5 GM/DL 13.7-17.5 HEMATOCRIT (BEAKER) (test htzt=664) 40.3 % 40.1-51.0 MEAN CORPUSCULAR VOLUME (BEAKER) (test klxz=588) 93.5 fL 79.0-92.2 MEAN CORPUSCULAR HEMOGLOBIN (BEAKER) (test 31.3 pg 25.7-32.2 jesp=679) MEAN CORPUSCULAR HEMOGLOBIN CONC (BEAKER) (test 33.5 GM/DL 32.3-36.5 ffim=477) RED CELL DISTRIBUTION WIDTH (BEAKER) (test 13.5 % 11.6-14.4 urab=096) PLATELET COUNT (BEAKER) (test icpe=253) 180 K/CU MM 150-450 MEAN PLATELET VOLUME (BEAKER) (test ofpl=227) 10.3 fL 9.4-12.4 NUCLEATED RED BLOOD CELLS (BEAKER) (test 0 /100 WBC 0-0 hern=958) NEUTROPHILS RELATIVE PERCENT (BEAKER) (test 71 % wplq=614) LYMPHOCYTES RELATIVE PERCENT (BEAKER) (test 12 % xdje=857) MONOCYTES RELATIVE PERCENT (BEAKER) (test 6 % shok=814) EOSINOPHILS RELATIVE PERCENT (BEAKER) (test 9 % jvam=652) BASOPHILS RELATIVE PERCENT (BEAKER) (test 1 % slrr=279) NEUTROPHILS ABSOLUTE COUNT (BEAKER) (test 8.41 K/ L 1.78-5.38 unug=019) LYMPHOCYTES ABSOLUTE COUNT (BEAKER) (test 1.44 K/ L 1.32-3.57 efdd=553) MONOCYTES ABSOLUTE COUNT (BEAKER) (test 0.76 K/ L 0.30-0.82 wcwl=626) EOSINOPHILS ABSOLUTE COUNT (BEAKER) (test 1.11 K/ L 0.04-0.54 wlqt=637) BASOPHILS ABSOLUTE COUNT (BEAKER) (test 0.07 K/ L 0.01-0.08 xeeb=148) IMMATURE GRANULOCYTES-RELATIVE PERCENT (BEAKER) 0 % 0-1 (test mahz=4857) PROTHROMBIN [id number] 13:07:00 Test Item Value Reference Range Comments PROTIME (BEAKER) (test nowb=985) 13.4 seconds 11.7-14.7 INR (BEAKER) (test eeml=610) 1.0 <=5.9 RECOMMENDED COUMADIN/WARFARIN INR THERAPY RANGESSTANDARD DOSE: 2.0 - 3.0 Includes: PROPHYLAXIS forvenous thrombosis, systemic embolization; TREATMENT for venous thrombosis and/or pulmonary embolus.HIGH RISK: Target INR is 2.5-3.5 for patients with mechanical heart valves.[id number] 13:21:00 Test Item Value Reference Range Comments POC-CREATININE (BEAKER) 1.3 mg/dL 0.6-1.3 TESTED AT [facility] [address] [facility] (test tlzj=4831) [facility] [address] POC-EGFR (BEAKER) (test 52 mL/min/1.73M2 mdjm=2694)
== END 2019-03-10 18:54 | disposition home or self-care (01) ==
LOC: ER 18:05
DX: L08.9 Local infection of the skin and subcutaneous tissue, unspecified (principal); C46.9 Kaposi's sarcoma, unspecified; I10 Essential (primary) hypertension; Z88.5 Allergy status to narcotic agent; Z88.8 Allergy status to other drugs, medicaments and biological substances
CPT/HCPCS: 99282

== ENCOUNTER 2020-01-09 10:34 | Emergency (ER) | payer OTHER ==
--- OUTSIDE RECORDS SUMMARY | 2020-01-09 10:37 | XMS REPORT | Clinical Summary ---
:1930 Author Organization [facility] Address [address] [place] [address] Care Team Providers Name Role Phone Nighat Wright MD Primary Care Provider Allergies Active Allergy Reactions Severity Noted Date Comments Codeine 11/05/2015 Hydrocodone-Acetaminophen 12/05/2016 Pregabalin 12/05/2016 "Lyrica" Tramadol 12/05/2016 Medications Medication Sig Dispensed Refills Start Date End Date Status aspirin 81 MG chewable Take 81 mg by 0 Active tablet mouth daily. potassium chloride SA Take 20 mEq by 0 Active (K-DUR,KLOR-CON) 10 MEQ mouth daily . tablet rosuvastatin (CRESTOR) Take 10 mg by 0 Active 10 MG tablet mouth daily. cyanocobalamin 1000 MCG Take 1,000 mcg by 0 Active tablet mouth daily. ascorbic acid, vitamin Take 1,000 mg by 0 Active C, (VITAMIN C) 1000 MG mouth daily. tablet cholecalciferol, Take 1,000 Units 0 Active vitamin D3, 2,000 unit by mouth daily . Tab LACTOBACILLUS Take 1 capsule by 0 Active ACIDOPHILUS (PROBIOTIC mouth daily . ORAL) simethicone (MYLANTA Take 125 mg by 0 Active GAS MAXIMUM STRENGTH) mouth every 6 125 MG chewable tablet (six) hours as needed for Flatulence. glucosamine-chondroitin Take 1 tablet by 0 Active 500-400 mg tablet mouth daily. furosemide (LASIX) 40 Take 1 tablet (40 30 tablet 2 01/04/2017 Active MG tablet mg total) by mouth daily. omeprazole (PRILOSEC) Take 40 mg by 0 Active 40 MG capsule mouth daily. hydrocortisone 2.5 % Apply topically 0 Active ointment as needed (for eczema). VIT C/VIT E Take 1 tablet by 0 A ctive ACETATE/LUTEIN/MIN mouth daily. 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 Last Filed Vital Signs Not on file Plan of Treatment Health Maintenance Due Date Last Done Comments INFLUENZA VACCINE 01/29/2018 Implants Implanted Type Area Spooler Operator Device Shelf Model / Identifier Expiration Date Ser ial / Lot [place] Cong 3 Thv KONG 9 [id number] / Implanted: Qty: 1 on 01/04/2017 by Nelson Mcclellan MD [employer] [id number] / Results Not on fileafter 01/08/2019 Insurance Payer Benefit Plan / Group Subscriber ID Type Phone A ddress MEDICARE MEDICARE A B xxxxxxxxxx Medicare Advance Directives For more information, please contact:[address] [phone] Code Status Date Activated Date Inactivated Comments Full Code 01/04/2017 5:55 AM 01/05/2017 8:26 PM This code status was determined by: Patient
--- OUTSIDE RECORDS SUMMARY | 2020-01-09 10:38 | XMS REPORT | Continuity of Care Document ---
:[address] [facility] t Address [address] [place] [address] Care Team Providers Name Role Phone Cami HUMMEL Primary Care Physician Unavailable SYSTEM, NOT IN Attending Clinician Unavailable Luis Fernando Holland Attending Clinician Virginia HEARD Attending Clinician Cami Hummel MD Attending Clinician [facility] Attending Clinician Yan RABAGO, C Attending Clinician Unavailable Vincent RN Attending Clinician Caleb RN Attending Clinician Unavailable Shaan White, T Attending Clinician Candis RABAGO, R Attending Clinician Unavailable Homar RABAGO, A Attending Clinician Unavailable SHAAN Attending Clinician Unavailable EKATERINA GALO Attending Clinician Unavailable SYSTEM, NOT IN Attending Clinician Unavailable EKATERINA GALO Admitting Clinician Unavailable Payers Payer Name Policy Type Policy Effective Date Expiration Date Sour ce Number MEDICAREMEDICARE PART [id number] 1995 MD Raul Farmer AND 00:00:00 [id number]-P [id number] TON, TXMedicare Problems Condition Condition Condition Status Onset Resolution Last Treating Co mments Source Name Details Category Date Date Treatment Clinician Date Serum Serum Disease Active 2016-05 Last creatinine creatinine 0-27 Vicente Walton raised raised 00:00: t & Plan: n 00 Elevated serum creatinin e noted, creatinin e is 1.47. Patient is advised to maintain good hydration . He is on daily Lasix for fluid retention . 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 Acute Acute Disease Active Last congestive congestive 11-11 Vicente Walton heart heart 00:00: t & Plan: n failure failure 00 No new CP, SOB or new LE swelling or creatinin e increase. 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 Kaposi's Kaposi's Disease Active Last sarcoma sarcoma -22 Vicente lei (clinical) (clinical) 00:00: t & Plan: n 00 Margarito Zepeda is a 89 y.o. 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 Most recently, patient was receiving weekly Abraxane, and was having significa nt fatigue. Therefore patient was initiated on treatment break after his last visit in March 2019. Currently , he feels very well. Denies any changes to the skin where he has kaposi sarcoma lesionsOn physical exam, Kaposi sarcoma lesions are stable. Therefore patient will be continued on surveilla nce. Patient will return to clinic in 3 months with labs. Hyperlipid Hyperlipid Disease Active [facility] Coronary Coronary Disease [facility] - disease disease [facility] Center S/P CABG S/P CABG Disease Active [facility] (coronary (coronary [facility] - artery artery [facility] bypass bypass [place] graft) graft) Carotid Carotid Disease Active [facility] artery artery [facility] - occlusion occlusion [facility] S/P S/P Disease Active [facility] carotid carotid [facility] - endarterec endarterec [facility] GERD GERD Disease Active [facility]gastroeso [facility]eso [facility] reflux [place] disease) disease) Sarcoma Sarcoma Disease Active Overview: [facility] left [facility] - leg/chemo [facility] Hypertensi Hypertensi Disease Active [facility] on [facility] Allergies, Adverse Reactions, Alerts Allergy Allergy Status Severity Reaction(s) Onset Inactive Treating Comm ents Source Name Type Date Date Clinician Hydrocod Propensi Active [facility] one-Acet ty to 12-05 [facility] - aminophe adverse 00:00: Medical n reaction 00 Center s [place] Propensi Active "Lyrica" [facility] in ty to 12-05 [facility] - adverse 00:00: Medical reaction 00 Center s Tramadol Propensi Active [facility] ty to 12-05 [facility] - adverse 00:00: Medical reaction 00 Center s Codeine Propensi Active [facility] ty to 11-04 [facility] - adverse 00:00: Medical reaction 00 Center s Family History Family Member Diagnosis Comments Start Date Stop Date Source Natural sister Cervical cancer MD Janice gonzalez Natural sister Colon cancer MD Marion son Natural sister Rectal cancer MD Patel rserica Social History Social Habit Start Date Stop Date Quantity Comments Source Sex Assigned At MD [place] on Tobacco use and 2019-06-04 2019-06-04 Never used MD Hendrickson on exposure 00:00:00 00:00:00 Alcohol intake 2019-06-04 2019-06-04 Current MD Anton torres 00:00:00 00:00:00 non-drinker of alcohol (finding) Smoking Status Start Date Stop Date Source Never smoker MD Carter Medications Ordered Filled Start Stop Current Ordering Indication Dosage Frequency Signature Comments Components Source Medication Medication Date Date Medication? Clinician (SIG) Name Name BABY Yes 81mg Take 81 mg ASPIRIN 6-04 by mouth Anderso ORAL 20:03: daily. n 50 cyanocobala 2020-0 Yes 1{tbl} Take 1 MD min 6-04 tablet by Anderso (vitamin 20:03: mouth n B-12) 1000 50 daily. mcg tablet ascorbic 2020-0 Yes 1{tbl} Take 1 MD acid, 6-04 tablet by Anderso vitamin C, 20:03: mouth n (ascorbic 50 daily. acid with cori hips) 500 mg tablet cholecalcif 2020-0 Yes 1000U Take 1,000 MD radha, 6-04 Units by Anderso vitamin D3, 20:03: mouth n 1,000 units 50 daily. tablet clopidogrel 2020-0 Yes 75mg Take 75 mg MD (PLAVIX) 75 6-04 by mouth Jorge rso mg tablet 20:03: daily. n 50 VIT C/VIT 2020-0 Yes 1{tbl} Take 1 MD E/LUTEIN/WA 6-04 tablet by And erso N/OMEGA-3 20:03: mouth n (OCUVITE 50 daily. ORAL) cetirizine 2019-0 Yes 10mg Take 10 mg M D (ZyrTEC) 10 -04 by mouth Jorge rso mg tablet 20:03: daily. n 50 triamcinolo 2020-0 Yes Nummular 1{appli Apply 1 MD ne 04 eczema cation} applicatio Jorge rso (KENALOG) 00:00: n n 0.1% cream 00 topically to affected area(s) twice daily. For eczema pravastatin 2019-0 2020- No Take by (PRAVACHOL) 06-04- mouth. Doni so 40 mg 17:36: 00:00 n tablet 18 :00 omeprazole 2019-0 2020- No 20mg Take 20 mg MD (PriLOSEC) 2- 02-04 by mouth Jorge rso 20 mg 17:34: 00:00 every n capsule 41 :00 morning before breakfast. atorvastati 2018-05 Yes 1{tbl} Take 1 MD n (LIPITOR) 2-30 tablet by And erso 40 mg 00:00: mouth n tablet 00 daily. amoxicillin 2018-05 2020- No 1{tbl} Take 1 M D -clavulanat 1-13 02-04 tablet by An derso e 00:00: 00:00 mouth n (AUGMENTIN) 00 :00 twice 875 mg-125 daily. mg per tablet ranitidine 2018-05 2019- No 150mg Take 150 M D (ZANTAC) 1-08 11-08 mg by Anderso 150 mg 17:51: 00:00 mouth 2 n tablet 06 :00 (two) times a day before meals. pantoprazol 2018-05 Yes 1{tbl} Take 1 MD e 0-16 tablet by Anton (PROTONIX) 00:00: mouth n 40 mg EC 00 daily. tablet mupirocin Yes Aminahmulaamol Alex MD (BACTROBAN) 01-04 eczema topically A nderso 2% ointment 00:00: to n 00 affected area(s) twice daily. betamethaso 2018- No Demarco Apply MD terry 01-04 09-21 eczema topically Anderso dipropionat 00:00: 04:59 to n e 00 :00 affected (DIPROLENE) area(s) 0.05% twice ointment daily for 14 days. hydrOXYzine Yes Kaposi's 10mg Take 1 MD HCl 8-09 sarcoma tablet (10 Emeka o (ATARAX) 10 00:00: (clinical) mg) by n mg tablet 00 mouth every 8 (eight) hours as needed for itching. furosemide Yes Kaposi's 20mg Take 1 M D (LASIX) 20 7-26 sarcoma tablet (20 Anderso mg tablet 00:00: (clinical) mg) by n 00 mouth daily as needed for edema. Adjusted dose per fluid on legs. prochlorper 2019- No Kaposi's 10mg Take 1 MD azine 7-11 02-04 sarcoma tablet (10 Jorge rso (COMPAZINE) 00:00: 00:00 (clinical) mg) by n 10 mg 00 :00 mouth tablet every 6 (six) hours as needed for nausea or vomiting. metoprolol Yes 1{tbl} Take 1 MD succinate 6-09 tablet by Doni lei (TOPROL XL) 00:00: mouth n 25 mg 24 hr 00 twice tablet daily. metoprolol 2016-05 Yes TAKE ONE [facility] (TOPROL-XL) 1-28 TABLET BY Libra es - 25 MG 24 hr 00:00: MOUTH Medic al tablet 00 TWICE Center DAILY potassium Yes 20meq QD Take [address] chloride SA 9-20 mEq by [facility] - (K-DUR,KLOR 10:05: mouth Medic al -CON) 10 30 daily . [place] MEQ tablet VIT C/VIT E Yes 1{tbl} QD Take [address] ACETATE/LUT 9-20 tablet by Libra es - EIN/MIN 10:05: mouth Medical (OCUVITE 30 daily. [place] LUTEIN ORAL) hydrocortis Yes Apply [facility] one 2.5 % 06 topically [facility] - ointment 15:07: as needed Medi piedad 39 (for Center eczema). omeprazole Yes 40mg QD Take [address] (PRILOSEC) 906 by mouth [facility] - 40 MG 14:06: daily. Medical capsule 21 [place] furosemide Yes 40mg QD Take 1 [facility] (LASIX) 40 06 tablet (40 Libra es - MG tablet 00:00: mg total) Med ical 00 by mouth Center daily. cholecalcif Yes 1000U QD Take 1,[address] radha, 8-16 Units by ElizabethYotomo - vitamin D3, 11:53: mouth Medic al 2,000 unit 54 daily . [place] Tab LACTOBACILL Yes 1{capsu QD Take [address] US 8-16 le} capsule by ElizabethYotomo - ACIDOPHILUS 11:53: mouth Medic al (PROBIOTIC 54 daily . Center ORAL) glucosamine Yes 1{tbl} QD Take [address] -chondroiti 8-16 tablet by Libra es - n 500-400 10:02: mouth Medical mg tablet 59 daily. [place] hydrocortis Yes Nummular Apply M D one 2.5% 12-07 eczema topically Jorge rso cream 00:00: to n 00 affected area(s) daily. As needed to face for eczema simethicone Yes 125mg Take [address] (MYLANTA 8-07 mg by [facility] - GAS MAXIMUM 09:56: mouth Medic al STRENGTH) 48 every 6 Center 125 MG (six) chewable hours as tablet needed for Flatulence . aspirin 81 Yes 81mg QD Take [address] MG chewable 8-07 by mouth Luke s - tablet 08:33: daily. Medical 30 Center rosuvastati Yes 10mg QD Take [address] [facility] n (CRESTOR) 8-07 by mouth Luke s - 10 MG 08:33: daily. Medical tablet 30 Center cyanocobala Yes 1000ug QD Take 1,[address] min 1000 8-07 mcg by [facility] - MCG tablet 08:33: mouth Medica l 30 daily. [place] ascorbic Yes 1000mg QD Take 1,[address] acid, 8-07 mg by [facility] - vitamin C, 08:33: mouth Medica l (VITAMIN C) 30 daily. [place] 1000 MG tablet triamcinolo 2020- No Nummular 1{appli Apply 1 MD terry 11-11 eczema cation} applicatio And erso (KENALOG) 00:00: 00:00 n n 0.1% cream 00 :00 topically to affected area(s) twice daily. For eczema Vital Signs Vital Name Observation Time Observation Value Comments Source Systolic blood pressure 2019-10-03 19:22:27 139 mm[Hg] MD Carter Diastolic blood pressure 2019-10-03 19:22:27 72 mm[Hg] MD Carter Heart rate 2019-10-03 19:22:27 82 /min MD Doni ramirez Body temperature 2019-10-03 19:22:27 36.61 Linn MD Marleny marcelino Respiratory rate 2019-10-03 19:22:27 18 /min MD Marleny marcelino Oxygen saturation in 2019-10-03 19:22:27 99 /min MD Carter Arterial blood by Pulse oximetry Body weight 2019-06-04 17:22:38 68 kg MD Doni ramirez BMI 2019-06-04 17:22:38 26.23 kg/m2 MD Doni ramirez Procedures Procedure Date / Time Performed Performing Clinician [facility] e COMPLETE BLOOD COUNT W/ 2019-06-04 16:05:00 Yumiko Bloom MD DIFFERENTIAL COMPREHENSIVE METABOLIC PANEL 2019-06-04 16:05:00 Yumiko Bloom MD Results CBC 2019-06-04 16:05:00 Yumiko Bloom MD MANUAL DIFFERENTIAL 2019-06-04 16:05:00 Yumiko Bloom MD GLUCOSE LEVEL 2019-06-04 16:05:00 Yumiko Bloom MD BLOOD UREA NITROGEN 2019-06-04 16:05:00 [facility] ELECTROLYTE PANEL 2019-06-04 16:05:00 Yumiko Bloom MD Andcourtneyo n SERUM CREATININE 2019-06-04 16:05:00 Yumiko Bloom MD .GLOMERULAR FILTRATION RATE 2019-06-04 16:05:00 Yumiko Bloom MD CALCIUM LEVEL TOTAL 2019-06-04 16:05:00 Yumiko Bloom MD [facility] ALBUMIN LEVEL 2019-06-04 16:05:00 Yumiko Bloom MD ALKALINE PHOSPHATASE 2019-06-04 16:05:00 Yumiko Bloom MD Jorge rson ALANINE AMINOTRANSFERASE 2019-06-04 16:05:00 Yumiko Bloom MD ASPARTATE AMINOTRANSFERASE 2019-06-04 16:05:00 Yumiko Bloom TOTAL PROTEIN 2019-06-04 16:05:00 Yumiko Bloom MD FRACTIONATED BILIRUBIN 2019-06-04 16:05:00 Yumiko Bloom MD derson COMPLETE BLOOD COUNT W/ 2019-03-08 16:36:00 Yoshi Hummel MD DIFFERENTIAL COMPREHENSIVE METABOLIC PANEL 2019-03-08 16:36:00 Janay Hummel MD MAGNESIUM LEVEL 2019-03-08 16:36:00 Y[facility] PHOSPHORUS LEVEL 2019-03-08 16:36:00 Yoshi Hummel MD Jorge rson Results CBC 2019-03-08 16:36:00 Y[facility] Hummel MD [facility] MANUAL DIFFERENTIAL 2019-03-08 16:36:00 Yoshi Hummel MDrserica GLUCOSE LEVEL 2019-03-08 16:36:00 Yoshi Hummel MD [facility] BLOOD UREA NITROGEN 2019-03-08 16:36:00 Yoshi Hummel MDrson ELECTROLYTE PANEL 2019-03-08 16:36:00 Yoshi Hummel MD And ers SERUM CREATININE 2019-03-08 16:36:00 Yoshi Hummel MD Jorge rson .GLOMERULAR FILTRATION RATE 2019-03-08 16:36:00 Yoshi Hummel MD CALCIUM LEVEL TOTAL 2019-03-08 16:36:00 Yoshi Hummel MDrserica ALBUMIN LEVEL 2019-03-08 16:36:00 Y[facility] ALKALINE PHOSPHATASE 2019-03-08 16:36:00 Yoshi Hummel MD ALANINE AMINOTRANSFERASE 2019-03-08 16:36:00 Yoshi Hummel MD ASPARTATE AMINOTRANSFERASE 2019-03-08 16:36:00 Yoshi Hummel MD TOTAL PROTEIN 2019-03-08 16:36:00 Y[facility]mel [facility] FRACTIONATED BILIRUBIN 2019-03-08 16:36:00 Yoshi Hummel COMPLETE BLOOD COUNT W/ 2019-02-22 12:25:00 Yoshi Hummel MD DIFFERENTIAL Results CBC 2019-02-22 12:25:00 Y[facility] Hummel [facility] MANUAL DIFFERENTIAL 2019-02-22 12:25:00 Yoshi Hummel MD COMPLETE BLOOD COUNT W/ 2019-02-15 13:13:00 Yoshi Hummel MD DIFFERENTIAL Results CBC 2019-02-15 13:13:00 Y[facility]mel [facility] MANUAL DIFFERENTIAL 2019-02-15 13:13:00 Yoshi Hummel MD COMPLETE BLOOD COUNT W/ 2019-02-08 14:38:00 Yumiko Bloom MD DIFFERENTIAL COMPREHENSIVE METABOLIC PANEL 2019-02-08 14:38:00 Yumiko Bloom MD Results CBC 2019-02-08 14:38:00 Yumiko Bloom MD MANUAL DIFFERENTIAL 2019-02-08 14:38:00 Yumiko Bloom MD [facility] GLUCOSE LEVEL 2019-02-08 14:38:00 Yumiko Bloom MD BLOOD UREA NITROGEN 2019-02-08 14:38:00 Yumiko Bloom MD [facility] ELECTROLYTE PANEL 2019-02-08 14:38:00 Yumiko Bloom MD [facility] SERUM CREATININE 2019-02-08 14:38:00 Yumiko Bloom MD .GLOMERULAR FILTRATION RATE 2019-02-08 14:38:00 Yumiko Bloom MD CALCIUM LEVEL TOTAL 2019-02-08 14:38:00 Yumiko Bloom MD Doni son ALBUMIN LEVEL 2019-02-08 14:38:00 Yumiko Bloom MD ALKALINE PHOSPHATASE 2019-02-08 14:38:00 Yumiko Bloom MD Jogre rson ALANINE AMINOTRANSFERASE 2019-02-08 14:38:00 Yumiko Bloom MD ASPARTATE AMINOTRANSFERASE 2019-02-08 14:38:00 Yumiko Bloom TOTAL PROTEIN 2019-02-08 14:38:00 Yumiko Bloom MD FRACTIONATED BILIRUBIN 2019-02-08 14:38:00 Yumiko Bloom MD derson COMPLETE BLOOD COUNT W/ 2019-01-25 13:47:00 Yoshi Hummel MD DIFFERENTIAL Results CBC 2019-01-25 13:47:00 Yoshi Hummel MD Don[facility] MANUAL DIFFERENTIAL 2019-01-25 13:47:00 Yoshi Hummel MD COMPLETE BLOOD COUNT W2019-01-11 13:33:00 Yoshi Hummel MD DIFFERENTIAL Results CBC 2019-01-11 13:33:00 Yoshi Hummel MD Doni son MANUAL DIFFERENTIAL 2019-01-11 13:33:00 Yoshi Hummel MD Plan of Care Planned Activity Planned Date Details Comments Source Future Scheduled 2018-01-[address] [facility] Test 00:00:00 [code = INFLUENZA Medical Ce nter VACCINE] Encounters Start End Encounter Admission Attending Care Care Encounter Source Date/Time Date/Time Type Type Clinicians Facility Department ID 2020-01-09 Outpatient SYSTEM, [facility] JAQUI [id number] 10:18:51 PROVIDER Emeka o n Results Test Description Test Time Test Comments Results Result Comments Source Fractionated Bilirubin 2019-06-04 16:55:47 Test Item Value Reference Range Interpretation Comme nts Bili Total (test code = 5096) 0.6 mg/dL <=1.2 Indocyanine Green (ICG) may cause falsely elevate d bilirubin results. Total and direc t bilirubin must not be measured fro m samples containing indocyanine gre en. False elevation of total biliru bin can be seen in patients with I gG concentrations above 28 g/L. Bili Direct (test code = 5094) 0.2 mg/dL <=0.3 Indocyanine Green (ICG) may cause falsely elevate d bilirubin results. Total and direc t bilirubin must not be measured fro m samples containing indocyanine gre en. Bili Indirect (test code = 0.4 mg/dL 0-0.9 5095) MD CarterTotal [id number] 16:55:46 Test Item Value Reference Range Interpretation Comments Total Protein (test code = 7649) 7.3 6.4- 8.3 gm/dL MD CarterCalcium [id number] 16:55:44 Test Item Value Reference Range Interpretation Comments Calcium Lvl (test code = 5258) 9.7 mg/dL 8.4-10.2 MD CarterGlomerular Filtration [id number] 16:55:43 Test Item Value Reference Range Interpretation Comments eGFR-AA (test code = 48 >=60 mL/min/1.73 L Nor mal eGFR: >= 60 8062) sq. m mL/min/1.73 m2N ote: The eGFR is piedad culated using the CKD-E PI equation. The e GFR declines with a ge. eGFR <60 mL/min /1.73 m2 is considere d as "decreased". Th is equation should only be used for pat ients 18 and older. According to th e National Kidney Foundation's Ki dney Disease Outcome Quality Initiat julieta (KDOQI) classif ication and 2012 Kidney Disease Improvi ng Global Outcomes (KDIGO) Clinica l Practice Guidel ine, the stage of CK D should be categ orized based on estima ellen GFR. Stage Desc ription GFR mL/mi n/1.73 m21 Normal or h igh GFR >=902 Mildly decreased GFR 60-893a M ildly to moderately decreased GFR 45-593b Moderat cornelio to severely decrea sed GFR 30-444 Sophie rely decreased GFR 15-295 Kidney f ailure <15 eGFR-STEPHY (test code = 42 >=60 mL/min/1.73 L No rmal eGFR: >= 60 8063) sq. m mL/min/1.73 m2N ote: The eGFR is piedad culated using the CKD-E PI equation. The e GFR declines with a ge. eGFR <60 mL/min /1.73 m2 is considere d as "decreased". Th is equation should only be used for pat ients 18 and older. According to rene crystal National Kidney Foundation's Ki evelyney Disease Outcome Quality Initiat julieta (KDOQI) classif ication and 2011 Kidney Disease Improvi ng Global Outcomes (KDIGO) Clinica l Practice Guidel ine, the stage of CK D should be categ orized based on estima ellen GFR. Stage Desc ription GFR mL/mi n/1.73 m21 Normal or h igh GFR >=902 Mildly decreased GFR 60-893a M ildly to moderately decreased GFR 45-593b Moderat cornelio to severely decrea sed GFR 30-444 Sophie rely decreased GFR 15-295 Kidney f ailure <15 Lab Interpretation Abnormal (test code = 36529-7) MD [id number] 16:55:42 Test Item Value Reference Range Interpretation Comments ALT (test code = 4705) 30 U/L <=41 MD CarterAlkaline [id number] 16:55:41 Test Item Value Reference Range Interpretation Comments Alk Phos (test code = 4768) 99 U/L 40-129 MD [id number] 16:55:40 Test Item Value Reference Range Interpretation Comments BUN (test code = 5055) 28 mg/dL 6-23 H Lab Interpretation (test code = Abnormal 54588-2) MD CarterAlbumin [id number] 16:55:39 Test Item Value Reference Range Interpretation Comments Albumin Lvl (test code = 4763) 4.5 3.5- 5.2 gm/dL MD CarterGlucose [id number] 16:55:38 Test Item Value Reference Range Interpretation Comments Glucose Level (test 83 mg/dL 70-99 Referenc e range is valid code = 5699) for fasting spe cimens only. Guideline s established by the [place] [employer] vaishnavi delines (Standards of M edical Care in Diabete s 2016. Diabetes Care 2 016; 39: S13-22) are jose manuel t a fasting glucose of greater than or equal to 126 mg/dL or a random glucose greater than or equal to 200 mg /dL with symptoms, that are confirmed by re peat testing on a di fferent day, meet the nathen [place] for diabetes me llitus. MD CarterAspartate [id number] 16:55:37 Test Item Value Reference Range Interpretation Comments AST (test code = 4731) 29 U/L <=40 MD CarterElectrolyte [id number] 16:55:36 Test Item Value Reference Range Interpretation Comments Sodium Lvl (test code = 7355) 138 136- 145 mEq/L Potassium Lvl (test code = 6854) 4.1 3.5- 5.1 mEq/L Chloride (test code = 5279) 98 98- 107 mEq/L CO2 (test code = 5227) 31 22- 29 mEq/L H Anion Gap (test code = 9325) 9 4- 14 mEq/L Lab Interpretation (test code = Abnormal 43325-7) MD Carter.Serum [id number] 16:55:35 Test Item Value Reference Range Interpretation Comments Creatinine (test code = 5399) 1.47 mg/dL 0.67-1.17 H Lab Interpretation (test code = Abnormal 69626-5) MD [id number] 16:37:48 Test Item Value Reference Range Interpretation Comments Neutrophil % (test code = 71.4 % 42-66 H 94989-8) Lymphocyte % (test code = 17.3 % 24-44 L 737-7) Monocyte % (test code = 8.8 % 2-7 H 744-3) Eosinophil % (test code = 1.5 % 1-4 713-8) Basophil % (test code = 0.4 % 0-1 707-0) IGRE % (test code = 0.6 % 0-0.4 H IGRE % c ount 02194-5) includes Metamyelocytes, Myelocytes, and Promyelocytes. Neutrophil Abs (test code 10.48 K/uL 1.7-7.3 H = 753-4) Lymphocyte Abs (test code 2.55 K/uL 1-4.8 = 732-8) Monocyte Abs (test code = 1.30 K/uL 0.08-0.7 H 743-5) Eosinophil Abs (test code 0.22 K/uL 0.04-0.4 = 712-0) Basophil Abs (test code = 0.06 K/uL 0-0.1 705-4) IG Abs (test code = 0.09 K/uL 0-0.04 H 84632-9) Lab Interpretation (test Abnormal code = 63983-4) MD Carter.[id number] 16:37:45 Test Item Value Reference Range Interpretation Comments WBC (test code = 14.7 K/uL 4-11 H 6690-2) RBC (test code = 4.65 4.50- 6.00 M/uL 789-8) Hgb (test code = 14.5 14.0- 18.0 gm/dL 718-7) Hct (test code = 44.1 % 40-54 4544-3) MPV (test code = 10.0 fL 4-10.4 787-2) MCH (test code = 31.2 pg 27-31 H 785-6) MCHC (test code = 32.9 31.0- 36.0 gm/dL 786-4) RDW-SD (test code = 47.0 fL 35.1-46.3 H 94470-7) RDW-CV (test code = 13.4 % 12-15.5 788-0) Platelet count (test 232 K/uL 140-440 code = 777-3) INRBC (test code = 0.0 % <=0.0 The INRBC (instrument 5974) NRBC) value ref lects the enumeration of nucleated red b lood cells contained in a 200uL sampleof whole blood analyzed by the instrument. Thi s value maydiffer from the NRBC value reported in a m anual differential,wh ich is based on a 100 cell differential. Lab Interpretation Abnormal (test code = 52215-4) MD CarterMagnesium [id number] 17:24:33 Test Item Value Reference Range Interpretation Comments Magnesium (test code = 6359) 2.2 mg/dL 1.6-2.6 MD CarterPhosphorus [id number] 17:24:30 Test Item Value Reference Range Interpretation Comments Phosphorus (test code = 6817) 2.8 mg/dL 2.5-4.5 MD CarterB-TYPE NATRIURETIC FACTOR (BNP)2017-01-18 11:56:00 Test Item Value Reference Range Interpretation Comments B-TYPE NATRIURETIC PEPTIDE (BEAKER) 244 pg/mL 0-100 H (test code = 700) [id number] 11:53:00 Test Item Value Reference Range Interpretation Comments MAGNESIUM (BEAKER) (test code = 2.1 mg/dL 1.6-2.6 627) BASIC METABOLIC [id number] 11:53:00 Test Item Value Reference Range Interpretation Comments SODIUM (BEAKER) 135 meq/L 136-145 L (test code = 381) POTASSIUM (BEAKER) 4.5 meq/L 3.5-5.1 (test code = 379) CHLORIDE (BEAKER) 97 meq/L 98-107 L (test code = 382) CO2 (BEAKER) (test 30 meq/L 22-29 H code = 355) BLOOD UREA NITROGEN 19 mg/dL 7-21 (BEAKER) (test code = 354) CREATININE (BEAKER) 1.37 mg/dL 0.57-1.25 H (test code = 358) GLUCOSE RANDOM 94 mg/dL 70-105 (BEAKER) (test code = 652) CALCIUM (BEAKER) 9.8 mg/dL 8.4-10.2 (test code = 697) EGFR (BEAKER) (test 49 mL/min/1.73 ESTIMA ELLEN GFR IS code = 1092) sq m NOT ACCURATE CREATININE CLEARANCE IN PREDICTING GLOMERULAR FILTRATION RATE . ESTIMATED GFR I S NOT APPLICABLE FOR DIALYSIS PATIEN TS. BASIC METABOLIC [id number] 04:53:00 Test Item Value Reference Range Interpretation Comments SODIUM (BEAKER) 139 meq/L 136-145 (test code = 381) POTASSIUM (BEAKER) 3.4 meq/L 3.5-5.1 L (test code = 379) CHLORIDE (BEAKER) 101 meq/L 98-107 (test code = 382) CO2 (BEAKER) (test 29 meq/L 22-29 code = 355) BLOOD UREA NITROGEN 23 mg/dL 7-21 H (BEAKER) (test code = 354) CREATININE (BEAKER) 1.29 mg/dL 0.57-1.25 H (test code = 358) GLUCOSE RANDOM 90 mg/dL 70-105 (BEAKER) (test code = 652) CALCIUM (BEAKER) 8.7 mg/dL 8.4-10.2 (test code = 697) EGFR (BEAKER) (test 53 mL/min/1.73 ESTIMA ELLEN GFR IS code = 1092) sq m NOT ACCURATE CREATININE CLEARANCE IN PREDICTING GLOMERULAR FILTRATION RATE . ESTIMATED GFR I S NOT APPLICABLE FOR DIALYSIS PATIEN TS. CBC (HEMOGRAM ONLY)2017-01-05 04:34:00 Test Item Value Reference Range Interpretation Comments WHITE BLOOD CELL COUNT (BEAKER) 14.2 K/ L 3.5-10.5 H (test code = 775) RED BLOOD CELL COUNT (BEAKER) 3.60 M/ L 4.63-6.08 L (test code = 761) HEMOGLOBIN (BEAKER) (test code = 11.1 GM/DL 13.7-17.5 L 410) HEMATOCRIT (BEAKER) (test code = 33.7 % 40.1-51.0 L 411) MEAN CORPUSCULAR VOLUME (BEAKER) 93.6 fL 79.0-92.2 H (test code = 753) MEAN CORPUSCULAR HEMOGLOBIN 30.8 pg 25.7-32.2 (BEAKER) (test code = 751) MEAN CORPUSCULAR HEMOGLOBIN CONC 32.9 GM/DL 32.3-36.5 (BEAKER) (test code = 752) RED CELL DISTRIBUTION WIDTH 13.4 % 11.6-14.4 (BEAKER) (test code = 412) PLATELET COUNT (BEAKER) (test 118 K/CU MM 150-450 L code = 756) MEAN PLATELET VOLUME (BEAKER) 10.2 fL 9.4-12.4 (test code = 754) NUCLEATED RED BLOOD CELLS 0 /100 WBC 0-0 (BEAKER) (test code = 413) [id number] 16:04:00 Test Item Value Reference Range Interpretation Comments ACTIVATED CLOTTING TIME 131 sec TEST ED AT [place] [address] ([facility]) (test code = [facility] [place] [facility]) [id number] 14:11:00 Test Item Value Reference Range Interpretation Comments ACTIVATED CLOTTING TIME 147 sec TEST ED AT [place] [address] ([facility]) (test code = [facility] [place] [facility]) [id number] 11:50:00 Test Item Value Reference Range Interpretation Comments ACTIVATED CLOTTING TIME 164 sec TEST ED AT [place] [address] ([facility]) (test code = [facility] [place] [facility]) [id number] 11:27:00 Test Item Value Reference Range Interpretation Comments ACTIVATED CLOTTING TIME 169 sec TEST ED AT [place] [address] (BEAKER) (test code = LUCERO [place] [address]) [id number] 10:31:00 Test Item Value Reference Range Interpretation Comments ACTIVATED CLOTTING TIME 169 sec TEST ED AT [place] [address] [facility] (test code = LUCERO [place] [address]) [id number] 09:39:00 Test Item Value Reference Range Interpretation Comments ACTIVATED CLOTTING TIME 334 sec TEST ED AT [place] [address] (BEAKER) (test code = LUCERO Mach[place] [address]) [id number] B-TYPE NATRIURETIC FACTOR (BNP)2016-12-14 13:30:00 Test Item Value Reference Range Interpretation Comments B-TYPE NATRIURETIC PEPTIDE (BEAKER) 583 pg/mL 0-100 H (test code = 700) BASIC METABOLIC [id number] 13:27:00 Test Item Value Reference Range Interpretation Comments SODIUM (BEAKER) 139 meq/L 136-145 (test code = 381) POTASSIUM (BEAKER) 3.9 meq/L 3.5-5.1 (test code = 379) CHLORIDE (BEAKER) 101 meq/L 98-107 (test code = 382) CO2 (BEAKER) (test 30 meq/L 22-29 H code = 355) BLOOD UREA NITROGEN 16 mg/dL 7-21 (BEAKER) (test code = 354) CREATININE (BEAKER) 1.21 mg/dL 0.57-1.25 (test code = 358) GLUCOSE RANDOM 90 mg/dL 70-105 (BEAKER) (test code = 652) CALCIUM (BEAKER) 9.7 mg/dL 8.4-10.2 (test code = 697) EGFR (BEAKER) (test 57 mL/min/1.73 ESTIMA ELLEN GFR IS code = 1092) sq m NOT ACCURATE CREATININE CLEARANCE IN PREDICTING GLOMERULAR FILTRATION RATE . ESTIMATED GFR I S NOT APPLICABLE FOR DIALYSIS PATIEN TS. [id number] 13:27:00 Test Item Value Reference Range Interpretation Comments ALBUMIN (BEAKER) (test code = 1145) 4.3 g/dL 3.5-5.0 CBC W/PLT COUNT & AUTO [id number] 13:08:00 Test Item Value Reference Range Interpretation Comments WHITE BLOOD CELL COUNT (BEAKER) 11.8 K/ L 3.5-10.5 H (test code = 775) RED BLOOD CELL COUNT (BEAKER) 4.31 M/ L 4.63-6.08 L (test code = 761) HEMOGLOBIN (BEAKER) (test code = 13.5 GM/DL 13.7-17.5 L 410) HEMATOCRIT (BEAKER) (test code = 40.3 % 40.1-51.0 411) MEAN CORPUSCULAR VOLUME (BEAKER) 93.5 fL 79.0-92.2 H (test code = 753) MEAN CORPUSCULAR HEMOGLOBIN 31.3 pg 25.7-32.2 (BEAKER) (test code = 751) MEAN CORPUSCULAR HEMOGLOBIN CONC 33.5 GM/DL 32.3-36.5 (BEAKER) (test code = 752) RED CELL DISTRIBUTION WIDTH 13.5 % 11.6-14.4 (BEAKER) (test code = 412) PLATELET COUNT (BEAKER) (test 180 K/CU MM 150-450 code = 756) MEAN PLATELET VOLUME (BEAKER) 10.3 fL 9.4-12.4 (test code = 754) NUCLEATED RED BLOOD CELLS 0 /100 WBC 0-0 (BEAKER) (test code = 413) NEUTROPHILS RELATIVE PERCENT 71 % (BEAKER) (test code = 429) LYMPHOCYTES RELATIVE PERCENT 12 % (BEAKER) (test code = 430) MONOCYTES RELATIVE PERCENT 6 % (BEAKER) (test code = 431) EOSINOPHILS RELATIVE PERCENT 9 % (BEAKER) (test code = 432) BASOPHILS RELATIVE PERCENT 1 % (BEAKER) (test code = 437) NEUTROPHILS ABSOLUTE COUNT 8.41 K/ L 1.78-5.38 H (BEAKER) (test code = 670) LYMPHOCYTES ABSOLUTE COUNT 1.44 K/ L 1.32-3.57 (BEAKER) (test code = 414) MONOCYTES ABSOLUTE COUNT (BEAKER) 0.76 K/ L 0.30-0.82 (test code = 415) EOSINOPHILS ABSOLUTE COUNT 1.11 K/ L 0.04-0.54 H (BEAKER) (test code = 416) BASOPHILS ABSOLUTE COUNT (BEAKER) 0.07 K/ L 0.01-0.08 (test code = 417) IMMATURE GRANULOCYTES-RELATIVE 0 % 0-1 PERCENT ([employer]) (test code = 2801) PROTHROMBIN [id number] 13:07:00 Test Item Value Reference Range Interpretation Comments PROTIME (NASREEN) (test code = 13.4 seconds 11.7-14.7 759) INR ([employer]) (test code = 370) 1.0 <=5.9 RECOMMENDED COUMADIN/WARFARIN INR THERAPY RANGESSTANDARD DOSE: 2.0 - 3.0 Includes: PROPHYLAXIS forvenous thrombosis, systemic embolization; TREATMENT for venous thrombosis and/or pulmonary embolus.HIGH RISK: Target INR is 2.5-3.5 for patients with mechanical heart valves.[id number] 13:21:00 Test Item Value Reference Range Interpretation Comments POC-CREATININE 1.3 mg/dL 0.6-1.3 TESTED AT [facility] [address] ([facility]) (test [place] code = 1859) [id number] POC-EGFR ([employer]) 52 mL/min/1.73M2 (test code = 1860)
--- NOTE | 2020-01-09 11:53 | EDPHYS ---
Physician Documentation [facility] Name: Leonides Zepeda Age: 89 yrs Sex: Male : 1930 Arrival Date: 01/09/2020 Time: 10:37 Bed 23 Private MD: ED Physician Gilberto Baxter HPI: 01/08 11:41 This 89 yrs old Male presents to ER via Ambulatory with complaints of Wound jr8 Check. 11:41 Pt presents for wound assessment and tetanus shot. Pt states that a small brionna nail jr8 attached to a 2 x 4, cut his R wrist about 9 days ago. States that he has been applying abx ointment and bandaging it at home, but just wants to make sure it is healing appropriately. Also requests a tetanus shot, since his is out of date. No other complaints at this time.. Historical: - Allergies: 10:59 Codeine; ca1 10:59 Hydrocodone-Acetaminophen; ca1 10:59 Lyrica; ca1 10:59 tramadol; ca1 10:59 Vicodin; ca1 - PMHx: 10:59 CHF; GERD; High Cholesterol; Hypertension; Kaposi's Sarcoma; sarcoma; ca1 - PSHx: 10:59 Hear Valve Replacement; ca1 - Immunization history:: Adult Immunizations up to date, Last tetanus immunization: unknown. - Social history:: Smoking status: Patient denies any tobacco usage or history of. ROS: 11:50 Eyes: Negative for injury, pain, redness, and discharge, ENT: Negative for injury, jr8 pain, and discharge, Neck: Negative for injury, pain, and swelling, Cardiovascular: Negative for chest pain, palpitations, and edema, Respiratory: Negative for shortness of breath, cough, wheezing, and pleuritic chest pain, Abdomen/GI: Negative for abdominal pain, nausea, vomiting, diarrhea, and constipation, Back: Negative for injury and pain, MS/Extremity: Negative for injury and deformity, Neuro: Negative for headache, weakness, numbness, tingling, and seizure. 11:50 Skin: Positive for avulsion, of the right dorsal wrist . Exam: 11:50 Constitutional: This is a well developed, well nourished patient who is awake, alert, jr8 and in no acute distress. Cardiovascular: Regular rate and rhythm with a normal S1 and S2. No gallops, murmurs, or rubs. Normal PMI, no JVD. No pulse deficits. Respiratory: Lungs have equal breath sounds bilaterally, clear to auscultation and percussion. No rales, rhonchi or wheezes noted. No increased work of breathing, no retractions or nasal flaring. MS/ Extremity: Pulses equal, no cyanosis. Neurovascular intact. Full, normal range of motion. Neuro: Awake and alert, GCS 15, oriented to person, place, time, and situation. Cranial nerves II-XII grossly intact. Motor strength 5/5 in all extremities. Sensory grossly intact. Cerebellar exam normal. Normal gait. 11:50 Skin: Patient has superficial avulsion of skin to dorsal right wrist. No bleeding at this time . Vital Signs: 10:55 BP 152 / 77; Pulse 81; Resp 16 S; Temp 97.5(TE); Pulse Ox 96% on R/A; Weight 65.77 kg ca1 (R); Height 5 ft. 4 in. (162.56 cm) (R); 10:55 Body Mass Index 24.89 (65.77 kg, 162.56 cm) ca1 MDM: 11:32 Patient medically screened. 8 11:50 Data reviewed: vital signs, nurses notes, and as a result, I will discharge patient. jr8 Data interpreted: Pulse oximetry: on room air is 96 %. Interpretation: normal. 11:50 Counseling: I had a detailed discussion with the patient and/or guardian regarding: the jr8 historical points, exam findings, and any diagnostic results supporting the discharge/admit diagnosis, the need for outpatient follow up, a family practitioner, to return to the emergency department if symptoms worsen or persist or if there are any questions or concerns that arise at home. Administered Medications: 11:45 Drug: Tetanus-Diphtheria Toxoid Adult 0.5 ml {[employer] Specialist: [employer] Exp: jl7 06/20/2022. Lot #: [id number]. } Route: IM; Site: right deltoid; 12:01 Follow up: Response: No adverse reaction jl7 Disposition: 16:28 Co-signature as Attending Physician, Gilberto Baxter MD. rn Disposition: 01/09/20 11:52 Discharged to Home. Impression: Avulsion of skin . - Condition is Stable. - Discharge Instructions: Deep Skin Avulsion. - Medication Reconciliation Form, Thank You Letter, Antibiotic Education, Prescription Opioid Use form. - Follow up: Private Physician; When: As needed; Reason: Wound Recheck, Recheck today's complaints, Continuance of care, Re-evaluation by your physician. - Problem is new. - Symptoms have improved. Signatures: Gilberto Baxter MD MD rn Michael Lerma PA PA jr8 Tee Edmonds RN RN jl7 Marleen Chin RN RN ls4 Luci Rodriguez RN RN ca1 Corrections: (The following items were deleted from the chart) 12:17 11:52 01/09/2020 11:52 Discharged to Home. Impression: Avulsion of skin . Condition is ls4 Stable. Forms are Medication Reconciliation Form, Thank You Letter, Antibiotic Education, Prescription Opioid Use. Follow up: Private Physician; When: As needed; Reason: Wound Recheck, Recheck today's complaints, Continuance of care, Re-evaluation by your physician. Problem is new. Symptoms have improved. jr8
--- NOTE | 2020-01-09 11:53 | ER ---
Nurse's Notes [facility] Name: Leonides Zepeda Age: 89 yrs Sex: Male : 1930 Arrival Date: 01/09/2020 Time: 10:37 Bed 23 Private MD: Diagnosis: Avulsion of skin Presentation: 01/08 10:55 Chief complaint: Patient states: Superficial Lac on R wrist a week ago, did not seek ca1 medical consult. Come to the ER today, wound is not healing well, red and swollen, a little pain. Coronavirus screen: Client denies travel out of the [place] in the last 14 days. At this time, the client does not indicate any symptoms associated with coronavirus-19. Ebola Screen: Patient negative for fever greater than or equal to 101.5 degrees Fahrenheit, and additional compatible Ebola Virus Disease symptoms Patient denies exposure to infectious person. Patient denies travel to an Ebola-affected area in the 21 days before illness onset. No symptoms or risks identified at this time. Initial Sepsis Screen: Does the patient meet any 2 criteria? No. Patient's initial sepsis screen is negative. Does the patient have a suspected source of infection? No. Patient's initial sepsis screen is negative. Risk Assessment: Do you want to hurt yourself or someone else? Patient reports no desire to harm self or others. Onset of symptoms was January 09, 2020. 10:55 Method Of Arrival: Ambulatory ca1 10:55 Acuity: NARGIS 5 ca1 Historical: - Allergies: 10:59 Codeine; ca1 10:59 Hydrocodone-Acetaminophen; ca1 10:59 Lyrica; ca1 10:59 tramadol; ca1 10:59 Vicodin; ca1 - PMHx: 10:59 CHF; GERD; High Cholesterol; Hypertension; Kaposi's Sarcoma; sarcoma; ca1 - PSHx: 10:59 Hear Valve Replacement; ca1 - Immunization history:: Adult Immunizations up to date, Last tetanus immunization: unknown. - Social history:: Smoking status: Patient denies any tobacco usage or history of. Vital Signs: 10:55 BP 152 / 77; Pulse 81; Resp 16 S; Temp 97.5(TE); Pulse Ox 96% on R/A; Weight 65.77 kg ca1 (R); Height 5 ft. 4 in. (162.56 cm) (R); 10:55 Body Mass Index 24.89 (65.77 kg, 162.56 cm) ca1 ED Course: 10:37 Patient arrived in ED. as 10:58 Triage completed. ca1 10:59 Arm band placed on right wrist. ca1 11:31 Tee Edmonds, RN is Primary Nurse. jl7 11:32 Mihcael Lerma PA is PHCP. jr8 11:32 Gilberto Baxter MD is Attending Physician. jr8 Administered Medications: 11:45 Drug: Tetanus-Diphtheria Toxoid Adult 0.5 ml {[employer] Chief: [employer]. Exp: jl7 06/20/2022. Lot #: [id number]. } Route: IM; Site: right deltoid; 12:01 Follow up: Response: No adverse reaction jl7 Outcome: 11:52 Discharge ordered by . jr8 12:17 Patient left the ED. ls4 Signatures: Alysia Fitch Josh, PA PA jr8 Tee Edmonds RN RN jl7 Marleen Chin, GEM RN ls4 Luci Rodriguez RN RN ca1
[2020-01-09] MEDS ORDERED: TETANUS & DIPHTHERIA TOX,ADULT 0.5 ML VIAL ONE (11:59)
[2020-01-09 12:21] VITALS: BP 152/77; TEMP 97.5; O2SAT 96
== END 2020-01-09 12:17 | disposition home or self-care (01) ==
LOC: ER 10:34
DX: S61.501A Unspecified open wound of right wrist, initial encounter (principal); W45.0XXA Nail entering through skin, initial encounter; Y93.9 Activity, unspecified; Y92.9 Unspecified place or not applicable; I10 Essential (primary) hypertension; C46.9 Kaposi's sarcoma, unspecified; Z23 Encounter for immunization; Z95.4 Presence of other heart-valve replacement; Z88.5 Allergy status to narcotic agent; Z88.6 Allergy status to analgesic agent; Z88.8 Allergy status to other drugs, medicaments and biological substances
CPT/HCPCS: 90471; 90714; 99282